=== PATIENT | female | born 2000 | race Caucasian/White ===

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

== ENCOUNTER 2021-03-20 07:48 | Emergency (ER) | payer MEDICAID, OTHER ==
[2021-03-20 08:12] LABS: Appearance CLOUDY (CLEAR); Bilirubin NEGATIVE (NEGATIVE); Blood LARGE Ery/ul (0-5); Glucose NEGATIVE (NEGATIVE); Ketones NEGATIVE (NEGATIVE); Leukocyte Esterase LARGE (NEGATIVE); Mucus SLIGHT /HPF (NEGATIVE); Nitrite NEGATIVE (NEGATIVE); Non-Squamous Epithelial Cells RARE /HPF (FEW); Protein,Urine Dip 100 (Negative); RBC >101 /HPF (0-2); Specific Gravity 1.016 (1.005-1.025); Urobilinogen NEGATIVE mg/dL (0-1); WBC >100 /HPF (0-5)
[2021-03-20 08:13] LABS: Bacteria FEW /HPF (NEGATIVE); Budding Yeast Moderate /HPF (NEGATIVE); Epithelial Cells FEW /HPF (FEW)
--- NOTE | 2021-03-20 08:16 | ERPHSYRPT ---
- History of Present Illness Time Seen by Provider: 03/20/21 08:05 Historian: patient Exam Limitations: no limitations Patient Subjective Stated Complaint: UTI symptoms Triage Nursing Assessment: Patient ambulated back to ED and transferred self to bed. Patient A+O X 3. Patient's skin pink, warm and dry. Patient complains of hematuria, dysuria,urgency and frequency since Saturday. Urine noted to be cloudy and dark yellow. Patient complains of pain when urinating. Physician History: This is a 20-year-old female who is obese and has no prior abdominal surgeries and presents with 4-day history of dysuria, frequency and right lower quadrant abdominal pain. The right lower quadrant abdominal pain has worsened. Patient has no known history of ovarian cyst. She is unsure whether or not she is . She has no nausea vomiting or diarrhea. She has no chest pain or shortness of breath. Timing/Duration: day(s) (4) Activities at Onset: none Quality: aching Abdominal Pain Onset Location: RLQ Pain Radiation: no radiation Severity of Pain-Max: moderate Severity of Pain-Current: moderate Modifying Factors: Improves With: nothing Associated Symptoms: denies symptoms Previous symptoms: no prior history Allergies/Adverse Reactions: No Known Drug Allergies Allergy (Verified 11/13/20 10:19) Hx Tetanus, Diphtheria Vaccination/Date Given: Yes Hx Influenza Vaccination/Date Given: No Hx Pneumococcal Vaccination/Date Given: No Immunizations Up to Date: Yes Travel Risk - International Travel Have you traveled outside of the country in past 3 weeks: No - Coronavirus Screening Are you exhibiting any of the following symptoms?: No Close contact with a COVID-19 positive Pt in past 14-21 Days: No - Vaccine Status Have you recieved a Covid-19 vaccination: Yes [employer]: [employer] - Vaccination Dates Date of 2cond Vaccination (if applicable): 10/27/2020 - Review of Systems Constitutional: No Symptoms Eyes: No Symptoms Ears, Nose, & Throat: No Symptoms Respiratory: No Symptoms Cardiac: No Symptoms Abdominal/Gastrointestinal: Abdominal Pain Genitourinary Symptoms: Dysuria, Frequency Musculoskeletal: No Symptoms Skin: No Symptoms Neurological: No Symptoms Psychological: No Symptoms Endocrine: No Symptoms Hematologic/Lymphatic: No Symptoms Immunological/Allergic: No Symptoms All Other Systems: Reviewed and Negative - Past Medical History Pertinent Past Medical History: Yes Neurological History: Migraines ENT History: No Pertinent History Cardiac History: No Pertinent History Respiratory History: Other Endocrine Medical History: No Pertinent History Musculoskeletal History: Other GI Medical History: No Pertinent History History: No Pertinent History Psycho-Social History: Depression Female Reproductive Disorders: No Pertinent History Other Medical History: HX OF COVID IN MARCH AND STATES STILL SOME DIFFICULTY BREATHING SOMETIMES. PATIENT REPORTS PAIN ALSO IN BETWEEN SHOULDER BLADES - Past Surgical History Past Surgical History: No Neuro Surgical History: No Pertinent History Cardiac: No Pertinent History Respiratory: No Pertinent History Gastrointestinal: No Pertinent History Genitourinary: No Pertinent History Musculoskeletal: No Pertinent History Female Surgical History: No Pertinent History - Social History Smoking Status: Never smoker Exposure to second hand smoke: Yes Drug Use: none Patient Lives Alone: Yes - Female History Hx Last Menstrual Period: End of january Hx Now: (unsure) - Nursing Vital Signs Nursing Vital Signs: Initial Vital Signs Temperature 97.1 F 03/20/21 07:56 Pulse Rate 98 H 03/20/21 07:56 Respiratory Rate 18 03/20/21 07:56 Blood Pressure 135/89 03/20/21 07:56 O2 Sat by Pulse Oximetry 97 03/20/21 07:56 Pain Scale Pain Intensity 7 - Physical Exam General Appearance: no apparent distress, alert, anxiety Eye Exam: PERRL/EOMI, eyes nml inspection Ears, Nose, Throat Exam: normal ENT inspection, moist mucous membranes Neck Exam: normal inspection, non-tender, supple, full range of motion Respiratory Exam: normal breath sounds, lungs clear, airway intact, No chest tenderness, No respiratory distress Cardiovascular Exam: regular rate/rhythm, normal heart sounds, normal peripheral pulses Gastrointestinal/Abdomen Exam: soft, normal bowel sounds, tenderness (Right lower quadrant), guarding, No rebound Pelvic Exam: not done Rectal Exam: not done Back Exam: normal inspection, normal range of motion, No CVA tenderness, No vertebral tenderness Extremity Exam: normal inspection, normal range of motion, pelvis stable Neurologic Exam: alert, oriented x 3, 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, 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, normal mood/affect, nml cerebellar function, nml station & gait, sensation nml Skin Exam: normal color, warm, dry Lymphatic Exam: No adenopathy SpO2 Interpretation: normal SpO2: 97 O2 Delivery: Room Air Ordered Tests: Active Orders 24 hr Category Date Time Status ABDOMEN AND PELVIS W/0 CONTRAS [CT] Stat Exams 03/20/21 08:04 Completed CULTURE,URINE Stat Lab 03/20/21 07:56 Received HCG,QUALITATIVE URINE Stat Lab 03/20/21 08:08 Completed UA W/RFX UR CULTURE Stat Lab 03/20/21 07:56 Completed Medication Summary Discontinued Medications Generic Name Dose Route Start Last Admin Trade Name Santi PRN Reason Stop Dose Admin Ceftriaxone Sodium 1,000 mg 03/20/21 08:45 03/20/21 08:57 Ceftriaxone Sodium 1000 Mg Inj Vial IM 03/20/21 08:46 1,000 mg STAT ONE Administration Ceftriaxone Sodium Confirm 03/20/21 08:56 Ceftriaxone Sodium 1000 Mg Inj Vial Administered 03/20/21 08:57 Dose 1,000 mg .ROUTE .STK-MED ONE Lidocaine HCl Confirm 03/20/21 08:56 Lidocaine Hcl 1% 20 Ml Mdv 20 Ml Ml Administered 03/20/21 08:57 Dose 3 ml .ROUTE .STK-MED ONE Lab/Rad Data: Laboratory Results 03/20/21 03/20/21 Range/Units 08:08 07:56 Urine Color ALPESH (YELLOW) Urine Appearance CLOUDY (CLEAR) Urine pH 5.0 (5-6) Ur Specific [place] 1.016 (1.005-1.025) Urine Protein 100 (Negative) Urine Ketones NEGATIVE (NEGATIVE) Urine Blood LARGE (0-5) Aashish/ul Urine Nitrite NEGATIVE (NEGATIVE) Urine Bilirubin NEGATIVE (NEGATIVE) Urine Urobilinogen NEGATIVE (0-1) mg/dL Ur Leukocyte Esterase LARGE (NEGATIVE) Urine WBC (Auto) >100 (0-5) /HPF Urine RBC (Auto) >101 (0-2) /HPF U Epithel Cells (Auto) FEW (FEW) /HPF Urine Bacteria (Auto) FEW (NEGATIVE) /HPF U Non-Squamous Epi Cells RARE (FEW) /HPF Urine Mucus (Auto) SLIGHT (NEGATIVE) /HPF Urine Yeast (Budding) Moderate (NEGATIVE) /HPF Urine Culture Reflexed YES (NO) Urine Glucose NEGATIVE (NEGATIVE) mg/dL Urine HCG, Qual NEGATIVE (Negative) - Progress Progress: improved Progress Note: 03/20/21 09:50 CAT scan of the abdomen pelvis without contrast shows a normal appendix. There is no evidence of nephrolithiasis or ureterolithiasis. Counseled pt/family regarding: lab results, diagnosis, need for follow-up, rad results - Departure Departure Disposition: Home Clinical Impression: UTI (urinary tract infection) Condition: Stable Critical Care Time: No Referrals: WANG MORALES, [employer]PERVISOR [Primary Care Provider] - Follow up/PCP as directed Additional Instructions: Drink plenty of fluids. Take your medication as prescribed. Follow-up with your primary care physician for further management. Prescriptions: Ciprofloxacin [Cipro 500 MG] 500 mg PO BID #14 tablet Phenazopyridine HCl 200 mg [Pyridium 200 mg] 200 mg PO TID #6 tablet
[2021-03-20] MEDS ORDERED: Rocephin 1000 MG INJ IM ONE (08:45)
[2021-03-20] MEDS ORDERED: Rocephin 1000 MG INJ ONE (08:56)
[2021-03-20] MEDS ORDERED: XYLOCAINE 1% HCL 20 ML MDV ONE (08:56)
--- NOTE | 2021-03-20 09:47 | XRAY ---
Indication: Right abdomen pain. Hematuria. Multiple contiguous axial images obtained through abdomen and pelvis without contrast using renal stone protocol. Comparison: None Lung bases are clear. Heart is not enlarged. No renal calculus or evidence for obstructive uropathy in either system. Noncontrasted stomach and bowel loops appear nonobstructed with normal appendix. Small cul-de-sac fluid presumed physiologic from rupture/leaking cyst. No free air. Tiny hepatic calcified granuloma. Remaining liver, gallbladder, pancreas, spleen, adrenal glands, kidneys, ureters, bladder, uterus, and aorta are unremarkable for noncontrast exam. Osseous structures intact. No ventral or inguinal hernias. Impression: 1. Negative renal calculus or evidence for obstructive uropathy. 2. Small physiologic cul-de-sac fluid and old granulomatous disease. 3. Remaining CT abdomen/pelvis without contrast exam is negative.
[2021-03-20 10:27] VITALS: BP 118/72; PULSE 66; O2SAT 100
== END 2021-03-20 10:27 | disposition home or self-care (01) ==
LOC: ED 07:48
DX: N39.0 Urinary tract infection, site not specified (principal); R31.9 Hematuria, unspecified; R10.31 Right lower quadrant pain; Z86.16 Personal history of COVID-19
CPT/HCPCS: 74176; 81001; 84703; 87086; 96372; 99284; J0696

== ENCOUNTER 2021-10-22 09:35 | Emergency (ER) | payer BC, OTHER ==
[2021-10-22 09:52] LABS: Absolute Neutrophil Ct (ANC) 3.82 x10^3/uL (1.4-6.9); Basophil (Absolute #) 0.07 x10^3/uL (0-0.4); Eosinophil % 2.8 % (0.00-5.0); Eosinophil (Absolute #) 0.17 x10^3/uL (0-0.5); Hematocrit 35.9 % (35-47); Hemoglobin 11.5 g/dL (12.0-16.0); Lymphocyte (Absolute #) 1.55 x10^3/uL (1.0-4.6); Lymphocytes % 25.2 % (24.0-44.0); Mean Cell Volume 85.9 fL (78-100); Mean Corpuscular Hemoglobin 27.5 pg (26-32); Mean Platelet Volume 10.1 fL (7.5-11.0); Monocyte (Absolute #) 0.51 x10^3/uL (0.0-1.3); Monocytes % 8.3 % (0.0-12.0); Neutrophil % 62.3 % (36.0-66.0); Platelet Count 332 x10^3/uL (150-450); Red Blood Count 4.18 x10^6/uL (4.1-5.4); Red Cell Distribution Width 12.9 % (11.5-14.0); White Blood Count 6.1 x10^3/uL (4.0-10.5)
[2021-10-22 10:15] LABS: ALBUMIN 4.2 g/dL (3.5-5.0); ALKALINE PHOSPHATASE 78 U/L (38-126); ANION GAP 12.8 MEQ/L (5-15); BLOOD UREA NITROGEN 8 mg/dL (7-17); CHLORIDE 107 mmol/L (98-107); Calcium 9.3 mg/dL (8.4-10.2); Carbon Dioxide 22 mmol/L (22-30); EST GLOMERULAR FILTRATION RATE > 60.0 ML/MIN; Glucose 109 mg/dL (74-106); NT PRO BNP 49.4 pg/mL (0-450); Potassium 3.9 mmol/L (3.5-5.1); SGOT/AST 24 U/L (14-36); SGPT/ALT 20 U/L (0-35); SODIUM 138 mmol/L (137-145); Total Protein 7.5 g/dL (6.3-8.2)
[2021-10-22 10:17] LABS: Appearance CLEAR (CLEAR); Bacteria RARE /HPF (NEGATIVE); Bilirubin NEGATIVE (NEGATIVE); Epithelial Cells RARE /HPF (FEW); Glucose NEGATIVE (NEGATIVE); Ketones NEGATIVE (NEGATIVE); Mucus SLIGHT /HPF (NEGATIVE); WBC 0-2 /HPF (0-5)
[2021-10-22 10:18] LABS: Dipstick done @ ? MAIN LAB; Nitrite NEGATIVE (NEGATIVE); Protein,Urine Dip NEGATIVE (Negative); RBC NEGATIVE Ery/ul (0-5); Specific Gravity >=1.030 (1.005-1.025); Urobilinogen 0.2 mg/dL (0-1)
[2021-10-22 10:19] LABS: RBC NONE SEEN /HPF (0-2); Urine Cultured Indicated? NO
[2021-10-22 10:27] LABS: Group A Strep DETECTED (NEGATIVE)
[2021-10-22 10:39] LABS: Amphetamine,Urine NEGATIVE (NEGATIVE); Barbiturate,Urine NEGATIVE (NEGATIVE); Benzodiazepine,Urine NEGATIVE (NEGATIVE); Methadone,Urine NEGATIVE (NEGATIVE); Opiate,Urine NEGATIVE (NEGATIVE); PCP,Urine NEGATIVE (NEGATIVE); THC,Urine NEGATIVE (NEGATIVE)
[2021-10-22 10:40] LABS: INFLUENZA A NEGATIVE (NEGATIVE); INFLUENZA B NEGATIVE (NEGATIVE); RESPIRATORY SYNCTIAL VIRUS NEGATIVE (Negative); SARS-CoV-2 Xpert Express NEGATIVE (NEGATIVE)
[2021-10-22 10:59] VITALS: BP 118/72; PULSE 71; O2SAT 100
[2021-10-22] MEDS ORDERED: AMOXIL 500 MG PO ONE (11:10)
[2021-10-22] MEDS ORDERED: AMOXIL 500 MG ONE (11:12)
--- NOTE | 2021-10-22 11:15 | ERPHSYRPT ---
- History of Present Illness Time Seen by Provider: 10/22/21 09:36 Historian: patient Exam Limitations: no limitations Patient Subjective Stated Complaint: C/O "strep throat" with intermittent chest pain for the past few days. States she had strep throat at the same time her boyfriend had it and she accidentally flushed his antibiotics down the toilet so she let him have the rest of her antibiotics. She is concerned that maybe her strep throat isn't resolved because of this. NO chest pain at this time. Triage Nursing Assessment: Patient ambulated back to ED without difficulties. NO SOB noted. Patient is alert and oriented. Skin tone normal. Physician History: 21 years old female presented in the ER with chief complaint of intermittent chest pain and shortness of breath especially with deep breathing for the last couple of days. She does have sore throat for the last few days and was diagnosed outpatient with strep but did not finish her course of antibiotics and now having worsening of sore throat. No fever or chills reported. Timing/Duration: day(s) (2), intermittent, gradual onset, improved Activities at Onset: none Quality: burning Location: substernal Chest Pain Radiation: no radiation Severity of Pain-Max: moderate Severity of Pain-Current: none Modifying Factors: Improves With: nothing Associated Symptoms: denies symptoms Prior Chest Pain/Cardiac Workup: no prior chest pain Nitro Today/Relief: no nitro taken today Aspirin Treatment Today: no aspirin today Allergies/Adverse Reactions: No Known Drug Allergies Allergy (Verified 10/22/21 09:36) Hx Tetanus, Diphtheria Vaccination/Date Given: Yes Hx Influenza Vaccination/Date Given: No Hx Pneumococcal Vaccination/Date Given: No Immunizations Up to Date: Yes Travel Risk - International Travel Have you traveled outside of the country in past 3 weeks: No - Coronavirus Screening Are you exhibiting any of the following symptoms?: No Close contact with a COVID-19 positive Pt in past 14-21 Days: No - Vaccine Status Have you recieved a Covid-19 vaccination: Yes Research Physician: [employer] - Vaccination Dates Date of 2cond Vaccination (if applicable): 10/27/2020 - Review of Systems Constitutional: No Symptoms Eyes: No Symptoms Ears, Nose, & Throat: Throat Pain, Throat Swelling Respiratory: Dyspnea Cardiac: Chest Pain Abdominal/Gastrointestinal: No Symptoms Genitourinary Symptoms: No Symptoms Musculoskeletal: No Symptoms Neurological: No Symptoms Psychological: No Symptoms Endocrine: No Symptoms Hematologic/Lymphatic: No Symptoms Immunological/Allergic: No Symptoms - Past Medical History Pertinent Past Medical History: Yes Neurological History: Migraines ENT History: No Pertinent History Cardiac History: No Pertinent History Respiratory History: Other Endocrine Medical History: No Pertinent History Musculoskeletal History: Other GI Medical History: No Pertinent History History: No Pertinent History Psycho-Social History: Depression Female Reproductive Disorders: Other Other Medical History: COVID IN MARCH 2021, Polycystic Ovary Disease - Past Surgical History Past Surgical History: No Neuro Surgical History: No Pertinent History Cardiac: No Pertinent History Respiratory: No Pertinent History Gastrointestinal: No Pertinent History Genitourinary: No Pertinent History Musculoskeletal: No Pertinent History Female Surgical History: No Pertinent History - Social History Smoking Status: Current every day smoker How long have you smoked: 1 year Exposure to second hand smoke: Yes Drug Use: none Patient Lives Alone: Yes - Female History Hx Last Menstrual Period: Unsure Hx Now: No - Nursing Vital Signs Nursing Vital Signs: Initial Vital Signs Temperature 97.8 F 10/22/21 09:35 Pulse Rate 85 10/22/21 09:35 Respiratory Rate 25 H 10/22/21 09:35 Blood Pressure 130/73 10/22/21 09:35 O2 Sat by Pulse Oximetry 98 10/22/21 09:35 Pain Scale Pain Intensity 0 - Physical Exam General Appearance: no apparent distress, alert Eye Exam: PERRL/EOMI Ears, Nose, Throat Exam: pharyngeal erythema, tonsillar exudate Neck Exam: normal inspection, non-tender, supple, full range of motion, lymphadenopathy Respiratory Exam: normal breath sounds, lungs clear Cardiovascular Exam: regular rate/rhythm, normal heart sounds Back Exam: normal inspection, normal range of motion Extremity Exam: normal inspection, normal range of motion Neurologic Exam: alert, oriented x 3, cooperative Skin Exam: normal color SpO2 Interpretation: normal SpO2: 100 O2 Delivery: Room Air Ordered Tests: Active Orders 24 hr Category Date Time Status EKG-ER Only STAT Care 10/22/21 09:39 Completed CHEST 1 VIEW (PORTABLE) Stat Exams 10/22/21 09:38 Completed CBC W DIFF Stat Lab 10/22/21 09:53 Completed CMP Stat Lab 10/22/21 09:53 Completed D-DIMER QUANTITATIVE Stat Lab 10/22/21 09:53 Completed HCG,QUALITATIVE URINE Stat Lab 10/22/21 09:57 Completed NT PRO BNP Stat Lab 10/22/21 09:53 Completed TROPONIN Q3H Lab 10/22/21 09:53 Completed UA W/RFX CULTURE Stat Lab 10/22/21 09:57 Completed Urine Triage Profile Stat Lab 10/22/21 10:00 Completed Medication Summary Discontinued Medications Generic Name Dose Route Start Last Admin Trade Name Santi PRN Reason Stop Dose Admin Amoxicillin 500 mg 10/22/21 11:10 10/22/21 11:12 Amoxicillin Trihydrate 500 Mg Capsule PO 10/22/21 11:11 500 mg STAT ONE Administration Amoxicillin Confirm 10/22/21 11:12 Amoxicillin Trihydrate 500 Mg Capsule Administered 10/22/21 11:13 Dose 500 mg .ROUTE .STK-MED ONE Lab/Rad Data: Laboratory Result Diagrams 10/22/21 09:53 10/22/21 09:53 Laboratory Results 10/22/21 10/22/21 10/22/21 Range/Units 10:00 10:00 09:57 WBC (4.0-10.5) x10^3/uL RBC (4.1-5.4) x10^6/uL Hgb (12.0-16.0) g/dL Hct (35-47) % MCV (78-100) fL MCH (26-32) pg MCHC (32-36) g/dL RDW (11.5-14.0) % Plt Count (150-450) x10^3/uL MPV (7.5-11.0) fL Gran % (36.0-66.0) % Immature Gran % (Auto) (0.00-0.4) % Nucleat RBC Rel Count (0.00-0.1) % Eos # (Auto) (0-0.5) x10^3/uL Immature Gran # (Auto) (0.00-0.03) x10^3u/L Absolute Lymphs (auto) (1.0-4.6) x10^3/uL Absolute Monos (auto) (0.0-1.3) x10^3/uL Absolute Nucleated RBC (0.00-0.01) x10^3u/L Lymphocytes % (24.0-44.0) % Monocytes % (0.0-12.0) % Eosinophils % (0.00-5.0) % Basophils % (0.0-0.4) % Absolute Granulocytes (1.4-6.9) x10^3/uL Basophils # (0-0.4) x10^3/uL D-Dimer (0.0-0.50) mg/L Sodium (137-145) mmol/L Potassium (3.5-5.1) mmol/L Chloride (98-107) mmol/L Carbon Dioxide (22-30) mmol/L Anion Gap (5-15) MEQ/L BUN (7-17) mg/dL Creatinine (0.52-1.04) mg/dL Estimated GFR ML/MIN Glucose (74-106) mg/dL Calcium (8.4-10.2) mg/dL Total Bilirubin (0.2-1.3) mg/dL AST (14-36) U/L ALT (0-35) U/L Alkaline Phosphatase (38-126) U/L Troponin I (0.000-0.034) ng/mL NT-Pro-B Natriuret Pep (0-450) pg/mL Serum Total Protein (6.3-8.2) g/dL Albumin (3.5-5.0) g/dL Urinalys Dipstick Clnc Urine Color (YELLOW) Urine Appearance (CLEAR) Urine pH (5-6) Ur Specific [place] (1.005-1.025) POC Urine Protein Conf (Negative) Urine Ketones (NEGATIVE) Urine Nitrite (NEGATIVE) Urine Bilirubin (NEGATIVE) Urine Urobilinogen (0-1) mg/dL Urine Leukocytes (NEGATIVE) Urine WBC (Auto) (0-5) /HPF Urine RBC (Auto) (0-2) /HPF U Epithel Cells (Auto) (FEW) /HPF Urine Bacteria (Auto) (NEGATIVE) /HPF Urine RBC (0-5) Aashish/ul Urine Mucus (Auto) (NEGATIVE) /HPF Ur Culture Indicated? Urine Glucose (NEGATIVE) mg/dL Urine HCG, Qual NEGATIVE (Negative) Urine Opiates Level NEGATIVE (NEGATIVE) Ur Methadone NEGATIVE (NEGATIVE) Urine Barbiturates NEGATIVE (NEGATIVE) Ur Phencyclidine (PCP) NEGATIVE (NEGATIVE) Urine Amphetamine NEGATIVE (NEGATIVE) U Benzodiazepine Level NEGATIVE (NEGATIVE) Urine Marijuana (THC) NEGATIVE (NEGATIVE) Influenza Type A Ag NEGATIVE (NEGATIVE) Influenza Type B Ag NEGATIVE (NEGATIVE) RSV (PCR) NEGATIVE (Negative) SARS-CoV-2 (PCR) NEGATIVE (NEGATIVE) Group A Strep Antibody DETECTED (NEGATIVE) 10/22/21 10/22/21 10/22/21 Range/Units 09:57 09:53 09:53 WBC (4.0-10.5) x10^3/uL RBC (4.1-5.4) x10^6/uL Hgb (12.0-16.0) g/dL Hct (35-47) % MCV (78-100) fL MCH (26-32) pg MCHC (32-36) g/dL RDW (11.5-14.0) % Plt Count (150-450) x10^3/uL MPV (7.5-11.0) fL Gran % (36.0-66.0) % Immature Gran % (Auto) (0.00-0.4) % Nucleat RBC Rel Count (0.00-0.1) % Eos # (Auto) (0-0.5) x10^3/uL Immature Gran # (Auto) (0.00-0.03) x10^3u/L Absolute Lymphs (auto) (1.0-4.6) x10^3/uL Absolute Monos (auto) (0.0-1.3) x10^3/uL Absolute Nucleated RBC (0.00-0.01) x10^3u/L Lymphocytes % (24.0-44.0) % Monocytes % (0.0-12.0) % Eosinophils % (0.00-5.0) % Basophils % (0.0-0.4) % Absolute Granulocytes (1.4-6.9) x10^3/uL Basophils # (0-0.4) x10^3/uL D-Dimer < 0.19 (0.0-0.50) mg/L Sodium (137-145) mmol/L Potassium (3.5-5.1) mmol/L Chloride (98-107) mmol/L Carbon Dioxide (22-30) mmol/L Anion Gap (5-15) MEQ/L BUN (7-17) mg/dL Creatinine (0.52-1.04) mg/dL Estimated GFR ML/MIN Glucose (74-106) mg/dL Calcium (8.4-10.2) mg/dL Total Bilirubin (0.2-1.3) mg/dL AST (14-36) U/L ALT (0-35) U/L Alkaline Phosphatase (38-126) U/L Troponin I < 0.012 (0.000-0.034) ng/mL NT-Pro-B Natriuret Pep (0-450) pg/mL Serum Total Protein (6.3-8.2) g/dL Albumin (3.5-5.0) g/dL Urinalys Dipstick Clnc MAIN LAB Urine Color YELLOW (YELLOW) Urine Appearance CLEAR (CLEAR) Urine pH 6.0 (5-6) Ur Specific [place] >=1.030 (1.005-1.025) POC Urine Protein Conf NEGATIVE (Negative) Urine Ketones NEGATIVE (NEGATIVE) Urine Nitrite NEGATIVE (NEGATIVE) Urine Bilirubin NEGATIVE (NEGATIVE) Urine Urobilinogen 0.2 (0-1) mg/dL Urine Leukocytes NEGATIVE (NEGATIVE) Urine WBC (Auto) 0-2 (0-5) /HPF Urine RBC (Auto) NONE SEEN (0-2) /HPF U Epithel Cells (Auto) RARE (FEW) /HPF Urine Bacteria (Auto) RARE (NEGATIVE) /HPF Urine RBC NEGATIVE (0-5) Aashish/ul Urine Mucus (Auto) SLIGHT (NEGATIVE) /HPF Ur Culture Indicated? NO Urine Glucose NEGATIVE (NEGATIVE) mg/dL Urine HCG, Qual (Negative) Urine Opiates Level (NEGATIVE) Ur Methadone (NEGATIVE) Urine Barbiturates (NEGATIVE) Ur Phencyclidine (PCP) (NEGATIVE) Urine Amphetamine (NEGATIVE) U Benzodiazepine Level (NEGATIVE) Urine Marijuana (THC) (NEGATIVE) Influenza Type A Ag (NEGATIVE) Influenza Type B Ag (NEGATIVE) RSV (PCR) (Negative) SARS-CoV-2 (PCR) (NEGATIVE) Group A Strep Antibody (NEGATIVE) 10/22/21 10/22/21 Range/Units 09:53 09:53 WBC 6.1 (4.0-10.5) x10^3/uL RBC 4.18 (4.1-5.4) x10^6/uL Hgb 11.5 L (12.0-16.0) g/dL Hct 35.9 (35-47) % MCV 85.9 (78-100) fL MCH 27.5 (26-32) pg MCHC 32.0 (32-36) g/dL RDW 12.9 (11.5-14.0) % Plt Count 332 (150-450) x10^3/uL MPV 10.1 (7.5-11.0) fL Gran % 62.3 (36.0-66.0) % Immature Gran % (Auto) 0.3 (0.00-0.4) % Nucleat RBC Rel Count 0.0 (0.00-0.1) % Eos # (Auto) 0.17 (0-0.5) x10^3/uL Immature Gran # (Auto) 0.02 (0.00-0.03) x10^3u/L Absolute Lymphs (auto) 1.55 (1.0-4.6) x10^3/uL Absolute Monos (auto) 0.51 (0.0-1.3) x10^3/uL Absolute Nucleated RBC 0.00 (0.00-0.01) x10^3u/L Lymphocytes % 25.2 (24.0-44.0) % Monocytes % 8.3 (0.0-12.0) % Eosinophils % 2.8 (0.00-5.0) % Basophils % 1.1 (0.0-0.4) % Absolute Granulocytes 3.82 (1.4-6.9) x10^3/uL Basophils # 0.07 (0-0.4) x10^3/uL D-Dimer (0.0-0.50) mg/L Sodium 138 (137-145) mmol/L Potassium 3.9 (3.5-5.1) mmol/L Chloride 107 (98-107) mmol/L Carbon Dioxide 22 (22-30) mmol/L Anion Gap 12.8 (5-15) MEQ/L BUN 8 (7-17) mg/dL Creatinine 0.70 (0.52-1.04) mg/dL Estimated GFR > 60.0 ML/MIN Glucose 109 H (74-106) mg/dL Calcium 9.3 (8.4-10.2) mg/dL Total Bilirubin 0.60 (0.2-1.3) mg/dL AST 24 (14-36) U/L ALT 20 (0-35) U/L Alkaline Phosphatase 78 (38-126) U/L Troponin I (0.000-0.034) ng/mL NT-Pro-B Natriuret Pep 49.4 (0-450) pg/mL Serum Total Protein 7.5 (6.3-8.2) g/dL Albumin 4.2 (3.5-5.0) g/dL Urinalys Dipstick Clnc Urine Color (YELLOW) Urine Appearance (CLEAR) Urine pH (5-6) Ur Specific [place] (1.005-1.025) POC Urine Protein Conf (Negative) Urine Ketones (NEGATIVE) Urine Nitrite (NEGATIVE) Urine Bilirubin (NEGATIVE) Urine Urobilinogen (0-1) mg/dL Urine Leukocytes (NEGATIVE) Urine WBC (Auto) (0-5) /HPF Urine RBC (Auto) (0-2) /HPF U Epithel Cells (Auto) (FEW) /HPF Urine Bacteria (Auto) (NEGATIVE) /HPF Urine RBC (0-5) Aashish/ul Urine Mucus (Auto) (NEGATIVE) /HPF Ur Culture Indicated? Urine Glucose (NEGATIVE) mg/dL Urine HCG, Qual (Negative) Urine Opiates Level (NEGATIVE) Ur Methadone (NEGATIVE) Urine Barbiturates (NEGATIVE) Ur Phencyclidine (PCP) (NEGATIVE) Urine Amphetamine (NEGATIVE) U Benzodiazepine Level (NEGATIVE) Urine Marijuana (THC) (NEGATIVE) Influenza Type A Ag (NEGATIVE) Influenza Type B Ag (NEGATIVE) RSV (PCR) (Negative) SARS-CoV-2 (PCR) (NEGATIVE) Group A Strep Antibody (NEGATIVE) - Progress Progress: re-examined Air Movement: good Progress Note: 10/22/21 11:11 21-year-old is evaluated for chest pain with shortness of breath and sore throat. No acute cardiopulmonary findings on chest x-ray reviewed by me, official report is pending. EKG normal sinus rhythm. Negative troponin and D- dimers. Has positive rapid strep test and started on amoxicillin. We will continue with antibiotics along with supportive care. Outpatient follow-up recommended. Discussed signs symptoms of worsening needing return to ER which she seems understanding. Blood Culture(s) Obtained: No Antibiotics given: Yes Counseled pt/family regarding: lab results, diagnosis, need for follow-up, rad results - Departure Departure Disposition: Home Clinical Impression: Strep pharyngitis, Atypical chest pain Condition: Stable Critical Care Time: No Referrals: WANG MORALES, ISABELLA [Primary Care Provider] - Follow Up with PCP/3 days Instructions: Chest Pain (DC), Strep Throat (DC) Additional Instructions: tylenol /ibuprofen as needed for pain /fever, follow up with PCP for re evaluation in 2-3 days. return to ER for worsening of symptoms. Prescriptions: Amoxicillin 500 mg PO BID 10 Days #20 tablet
--- NOTE | 2021-10-22 19:49 | XRAY ---
Indication: Chest pain and short of breath. Comparison: None Portable chest demonstrates normal heart, lungs, and bony thorax.
== END 2021-10-22 11:24 | disposition home or self-care (01) ==
LOC: ED 09:35
DX: J02.0 Streptococcal pharyngitis (principal); B95.0 Streptococcus, group A, as the cause of diseases classified elsewhere; R07.89 Other chest pain; R06.02 Shortness of breath; Z72.0 Tobacco use; Z86.16 Personal history of COVID-19
CPT/HCPCS: 0241U; 36415; 71045; 80053; 80307; 81015; 81025; 83880; 84484; 85025; 85379; 87651; 93005; 99283; A9270-GY

== ENCOUNTER 2021-11-03 08:55 | Emergency (ER) | payer BC, MEDICAID ==
--- NOTE | 2021-11-03 09:01 | ERPHSYRPT ---
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 Patient also has a history of suicidal attempts with both cutting and overdose of medication. Patient states that she has been feeling suicidal but not homicidal for the last month intermittently. She recently broke up with her boyfriend. In addition, her father took her dog to the dog pound because he felt the additional responsibility in care of dog was causing her more anxiety than helping. Patient states that she does not specifically have a plan this time but recently wrote a note out for the paramedics what drugs she overdosed with in order to help them know what she took. However, she did not follow through. She is not hallucinating. Again, patient denies any ingestion of any type of medication or drugs. She has no headache. She has no chest pain. She has no shortness of breath. She has no abdominal pain. Timing/Duration: today Severity of Symptoms-Max: moderate Severity of Symptoms-Current: mild (To moderate) Context related to: significant other, living circumstances Suicidal thoughts: other (Has actually attempted in the past) Associated Symptoms: depressed Previous symptoms: same symptoms as today, recently seen (For a different issue) Allergies/Adverse Reactions: No Known Drug Allergies Allergy (Verified 11/03/21 09:08) Hx Tetanus, Diphtheria Vaccination/Date Given: Yes Hx Influenza Vaccination/Date Given: No Hx Pneumococcal Vaccination/Date Given: No Travel Risk - International Travel Have you traveled outside of the country in past 3 weeks: No - Coronavirus Screening Are you exhibiting any of the following symptoms?: No Close contact with a COVID-19 positive Pt in past 14-21 Days: No - Vaccine Status Have you recieved a Covid-19 vaccination: Yes 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[employer] - Vaccination Dates Date of 2cond Vaccination (if applicable): 10/27/2020 - Past Medical History Pertinent Past Medical History: Yes Neurological History: Migraines ENT History: No Pertinent History Cardiac History: No Pertinent History Respiratory History: Other Endocrine Medical History: No Pertinent History Musculoskeletal History: Other GI Medical History: No Pertinent History History: No Pertinent History Psycho-Social History: Depression Female Reproductive Disorders: Other Other Medical History: COVID IN MARCH 2021, Polycystic Ovary Disease - Past Surgical History Past Surgical History: No Neuro Surgical History: No Pertinent History Cardiac: No Pertinent History Respiratory: No Pertinent History Gastrointestinal: No Pertinent History Genitourinary: No Pertinent History Musculoskeletal: No Pertinent History Female Surgical History: No Pertinent History - Social History Smoking Status: Current every day smoker How long have you smoked: 1 year Exposure to second hand smoke: Yes Drug Use: none Patient Lives Alone: Yes - Review of Systems Constitutional: No Symptoms Eyes: No Symptoms Ears, Nose, & Throat: No Symptoms Respiratory: No Symptoms Cardiac: No Symptoms Abdominal/Gastrointestinal: No Symptoms Genitourinary Symptoms: No Symptoms Musculoskeletal: No Symptoms Skin: No Symptoms Neurological: No Symptoms Psychological: Depression, Suicidal Ideations, No Homicidal Ideations, No Hallucinations Endocrine: No Symptoms Hematologic/Lymphatic: No Symptoms Immunological/Allergic: No Symptoms All Other Systems: Reviewed and Negative - Nursing Vital Signs Nursing Vital Signs: Initial Vital Signs Temperature 97.8 F 11/03/21 09:11 Pulse Rate 71 11/03/21 09:11 Respiratory Rate 15 11/03/21 09:11 Blood Pressure 116/61 11/03/21 09:11 O2 Sat by Pulse Oximetry 100 11/03/21 09:11 Pain Scale Pain Intensity 0 - Physical Exam General Appearance: no apparent distress, alert, anxiety, obese Eyes, Ears, Nose, Throat Exam: normal ENT inspection, moist mucous membranes Neck Exam: normal inspection, non-tender, supple, full range of motion Respiratory Exam: normal breath sounds, lungs clear, airway intact, No chest tenderness, No respiratory distress Cardiovascular Exam: regular rate/rhythm, normal heart sounds, normal peripheral pulses Gastrointestinal/Abdominal Exam: soft, normal bowel sounds, No tenderness Current Suicidality: denies suicide plan Neurological Exam: alert, normal mood/affect, 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, 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, oriented x 3, anxious, depressed affect Appearance: appropriate appearance, appropriate insight, neat Behavior/Eye Contact/Speech: alert & cooperative, cooperative, good eye contact, normal speech Thoughts/Hallucinations: normal thought pattern, no apparent hallucination Skin Exam: normal color, warm, dry SpO2 Interpretation: normal O2 Delivery: Room Air - Course Nursing assessment & vital signs reviewed: Yes EKG Interpreted by Me: RATE (70), Sinus Rhythm, NORMAL AXIS, NORMAL INTERVALS, NORMAL QRS, NORMAL ST-T, Other (No acute ischemic changes on today's EKG) Ordered Tests: Active Orders 24 hr Category Date Time Status EKG-ER Only STAT Care 11/03/21 09:34 Active ACETAMINOPHEN Stat Lab 11/03/21 10:02 Completed CBC W DIFF Stat Lab 11/03/21 09:34 Completed CMP Stat Lab 11/03/21 10:02 Completed ETHYL ALCOHOL Stat Lab 11/03/21 10:02 Completed HCG,QUALITATIVE URINE Stat Lab 11/03/21 09:35 Completed SALICYLATE Stat Lab 11/03/21 10:02 Completed UA W/RFX CULTURE Stat Lab 11/03/21 09:36 Completed Urine Triage Profile Stat Lab 11/03/21 09:35 Completed Lab/Rad Data: Laboratory Result Diagrams 11/03/21 09:34 11/03/21 10:02 Laboratory Results 11/03/21 11/03/21 11/03/21 Range/Units 10:02 09:40 09:36 WBC (4.0-10.5) x10^3/uL RBC (4.1-5.4) x10^6/uL Hgb (12.0-16.0) g/dL Hct (35-47) % MCV (78-100) fL MCH (26-32) pg MCHC (32-36) g/dL RDW (11.5-14.0) % Plt Count (150-450) x10^3/uL MPV (7.5-11.0) fL Gran % (36.0-66.0) % Immature Gran % (Auto) (0.00-0.4) % Nucleat RBC Rel Count (0.00-0.1) % Eos # (Auto) (0-0.5) x10^3/uL Immature Gran # (Auto) (0.00-0.03) x10^3u/L Absolute Lymphs (auto) (1.0-4.6) x10^3/uL Absolute Monos (auto) (0.0-1.3) x10^3/uL Absolute Nucleated RBC (0.00-0.01) x10^3u/L Lymphocytes % (24.0-44.0) % Monocytes % (0.0-12.0) % Eosinophils % (0.00-5.0) % Basophils % (0.0-0.4) % Absolute Granulocytes (1.4-6.9) x10^3/uL Basophils # (0-0.4) x10^3/uL Sodium 137 (137-145) mmol/L Potassium 5.0 (3.5-5.1) mmol/L Chloride 106 (98-107) mmol/L Carbon Dioxide 23 (22-30) mmol/L Anion Gap 13.2 (5-15) MEQ/L BUN 9 (7-17) mg/dL Creatinine 0.66 (0.52-1.04) mg/dL Estimated GFR > 60.0 ML/MIN Glucose 97 (74-106) mg/dL Calcium 9.0 (8.4-10.2) mg/dL Total Bilirubin 0.90 (0.2-1.3) mg/dL AST 28 (14-36) U/L ALT 16 (0-35) U/L Alkaline Phosphatase 68 (38-126) U/L Serum Total Protein 8.0 (6.3-8.2) g/dL Albumin 4.3 (3.5-5.0) g/dL Urinalys Dipstick Clnc MAIN LAB Urine Color YELLOW (YELLOW) Urine Appearance CLEAR (CLEAR) Urine pH 6.0 (5-6) Ur Specific [place] >=1.030 (1.005-1.025) POC Urine Protein Conf NEGATIVE (Negative) Urine Ketones NEGATIVE (NEGATIVE) Urine Nitrite NEGATIVE (NEGATIVE) Urine Bilirubin NEGATIVE (NEGATIVE) Urine Urobilinogen 0.2 (0-1) mg/dL Urine Leukocytes NEGATIVE (NEGATIVE) Urine WBC (Auto) 3-5 (0-5) /HPF Urine RBC (Auto) NONE (0-2) /HPF U Epithel Cells (Auto) RARE (FEW) /HPF Urine Bacteria (Auto) NONE (NEGATIVE) /HPF Urine RBC NEGATIVE (0-5) Aashish/ul Urine Mucus (Auto) SLIGHT (NEGATIVE) /HPF Ur Culture Indicated? NO Urine Glucose NEGATIVE (NEGATIVE) mg/dL Urine HCG, Qual (Negative) Salicylates < 1.0 L (2-20) mg/dL Urine Opiates Level (NEGATIVE) Ur Methadone (NEGATIVE) Acetaminophen < 10 L (10-30) ug/ml Urine Barbiturates (NEGATIVE) Ur Phencyclidine (PCP) (NEGATIVE) Urine Amphetamine (NEGATIVE) U Benzodiazepine Level (NEGATIVE) Urine Marijuana (THC) (NEGATIVE) Ethyl Alcohol < 10 (0-10) mg/dL Influenza Type A Ag NEGATIVE (NEGATIVE) Influenza Type B Ag NEGATIVE (NEGATIVE) RSV (PCR) NEGATIVE (Negative) SARS-CoV-2 (PCR) NEGATIVE (NEGATIVE) 11/03/21 11/03/21 11/03/21 Range/Units 09:35 09:35 09:34 WBC 8.5 (4.0-10.5) x10^3/uL RBC 4.19 (4.1-5.4) x10^6/uL Hgb 11.4 L (12.0-16.0) g/dL Hct 37.1 (35-47) % MCV 88.5 (78-100) fL MCH 27.2 (26-32) pg MCHC 30.7 L (32-36) g/dL RDW 13.3 (11.5-14.0) % Plt Count 266 (150-450) x10^3/uL MPV 10.7 (7.5-11.0) fL Gran % 72.3 H (36.0-66.0) % Immature Gran % (Auto) 0.4 (0.00-0.4) % Nucleat RBC Rel Count 0.0 (0.00-0.1) % Eos # (Auto) 0.14 (0-0.5) x10^3/uL Immature Gran # (Auto) 0.03 (0.00-0.03) x10^3u/L Absolute Lymphs (auto) 1.65 (1.0-4.6) x10^3/uL Absolute Monos (auto) 0.45 (0.0-1.3) x10^3/uL Absolute Nucleated RBC 0.00 (0.00-0.01) x10^3u/L Lymphocytes % 19.5 L (24.0-44.0) % Monocytes % 5.3 (0.0-12.0) % Eosinophils % 1.7 (0.00-5.0) % Basophils % 0.8 (0.0-0.4) % Absolute Granulocytes 6.12 (1.4-6.9) x10^3/uL Basophils # 0.07 (0-0.4) x10^3/uL Sodium (137-145) mmol/L Potassium (3.5-5.1) mmol/L Chloride (98-107) mmol/L Carbon Dioxide (22-30) mmol/L Anion Gap (5-15) MEQ/L BUN (7-17) mg/dL Creatinine (0.52-1.04) mg/dL Estimated GFR ML/MIN Glucose (74-106) mg/dL Calcium (8.4-10.2) mg/dL Total Bilirubin (0.2-1.3) mg/dL AST (14-36) U/L ALT (0-35) U/L Alkaline Phosphatase (38-126) U/L Serum Total Protein (6.3-8.2) g/dL Albumin (3.5-5.0) g/dL Urinalys Dipstick Clnc Urine Color (YELLOW) Urine Appearance (CLEAR) Urine pH (5-6) Ur Specific [place] (1.005-1.025) POC Urine Protein Conf (Negative) Urine Ketones (NEGATIVE) Urine Nitrite (NEGATIVE) Urine Bilirubin (NEGATIVE) Urine Urobilinogen (0-1) mg/dL Urine Leukocytes (NEGATIVE) Urine WBC (Auto) (0-5) /HPF Urine RBC (Auto) (0-2) /HPF U Epithel Cells (Auto) (FEW) /HPF Urine Bacteria (Auto) (NEGATIVE) /HPF Urine RBC (0-5) Aashish/ul Urine Mucus (Auto) (NEGATIVE) /HPF Ur Culture Indicated? Urine Glucose (NEGATIVE) mg/dL Urine HCG, Qual NEGATIVE (Negative) Salicylates (2-20) mg/dL Urine Opiates Level NEGATIVE (NEGATIVE) Ur Methadone NEGATIVE (NEGATIVE) Acetaminophen (10-30) ug/ml Urine Barbiturates NEGATIVE (NEGATIVE) Ur Phencyclidine (PCP) NEGATIVE (NEGATIVE) Urine Amphetamine NEGATIVE (NEGATIVE) U Benzodiazepine Level NEGATIVE (NEGATIVE) Urine Marijuana (THC) POSITIVE (NEGATIVE) Ethyl Alcohol (0-10) mg/dL Influenza Type A Ag (NEGATIVE) Influenza Type B Ag (NEGATIVE) RSV (PCR) (Negative) SARS-CoV-2 (PCR) (NEGATIVE) - Progress Progress: unchanged Progress Note: 11/03/21 15:00 Patient has been accepted at [facility] for further evaluation management of suicidal ideation. Counseled pt/family regarding: lab results, diagnosis - Departure Departure Disposition: Transfer Clinical Impression: Suicidal ideation Condition: Stable Critical Care Time: No Referrals: WANG MORALES NP [Primary Care Provider] - Follow up/PCP as directed
[2021-11-03 09:43] LABS: Appearance CLEAR (CLEAR); Bilirubin NEGATIVE (NEGATIVE); Dipstick done @ ? MAIN LAB; Glucose NEGATIVE (NEGATIVE); Ketones NEGATIVE (NEGATIVE); Nitrite NEGATIVE (NEGATIVE); Protein,Urine Dip NEGATIVE (Negative); RBC NEGATIVE Ery/ul (0-5); Specific Gravity >=1.030 (1.005-1.025); Urobilinogen 0.2 mg/dL (0-1)
[2021-11-03 09:44] LABS: Epithelial Cells RARE /HPF (FEW); Mucus SLIGHT /HPF (NEGATIVE)
[2021-11-03 09:45] LABS: Urine Cultured Indicated? NO
[2021-11-03 09:58] LABS: Amphetamine,Urine NEGATIVE (NEGATIVE); Barbiturate,Urine NEGATIVE (NEGATIVE); Benzodiazepine,Urine NEGATIVE (NEGATIVE); Methadone,Urine NEGATIVE (NEGATIVE); Opiate,Urine NEGATIVE (NEGATIVE); PCP,Urine NEGATIVE (NEGATIVE); THC,Urine POSITIVE (NEGATIVE)
[2021-11-03 10:00] LABS: Absolute Neutrophil Ct (ANC) 6.12 x10^3/uL (1.4-6.9); Basophil (Absolute #) 0.07 x10^3/uL (0-0.4); Eosinophil % 1.7 % (0.00-5.0); Eosinophil (Absolute #) 0.14 x10^3/uL (0-0.5); Hematocrit 37.1 % (35-47); Hemoglobin 11.4 g/dL (12.0-16.0); Lymphocyte (Absolute #) 1.65 x10^3/uL (1.0-4.6); Lymphocytes % 19.5 % (24.0-44.0); Mean Cell Volume 88.5 fL (78-100); Mean Corpuscular Hemoglobin 27.2 pg (26-32); Mean Corpuscular Hgb Concent. 30.7 g/dL (32-36); Mean Platelet Volume 10.7 fL (7.5-11.0); Monocyte (Absolute #) 0.45 x10^3/uL (0.0-1.3); Monocytes % 5.3 % (0.0-12.0); Neutrophil % 72.3 % (36.0-66.0); Platelet Count 266 x10^3/uL (150-450); Red Blood Count 4.19 x10^6/uL (4.1-5.4); Red Cell Distribution Width 13.3 % (11.5-14.0); White Blood Count 8.5 x10^3/uL (4.0-10.5)
[2021-11-03 10:11] LABS: ACETAMINOPHEN < 10 ug/ml (10-30); ALBUMIN 4.3 g/dL (3.5-5.0); ALKALINE PHOSPHATASE 68 U/L (38-126); ANION GAP 13.2 MEQ/L (5-15); BLOOD UREA NITROGEN 9 mg/dL (7-17); CHLORIDE 106 mmol/L (98-107); Carbon Dioxide 23 mmol/L (22-30); Creatinine 1 0.66 mg/dL (0.52-1.04); EST GLOMERULAR FILTRATION RATE > 60.0 ML/MIN; ETHYL ALCOHOL < 10 mg/dL (0-10); Glucose 97 mg/dL (74-106); SALICYLATE < 1.0 mg/dL (2-20); SGOT/AST 28 U/L (14-36); SGPT/ALT 16 U/L (0-35); SODIUM 137 mmol/L (137-145)
[2021-11-03 10:28] LABS: INFLUENZA A NEGATIVE (NEGATIVE); INFLUENZA B NEGATIVE (NEGATIVE); RESPIRATORY SYNCTIAL VIRUS NEGATIVE (Negative); SARS-CoV-2 Xpert Express NEGATIVE (NEGATIVE)
[2021-11-03 18:04] VITALS: PULSE 80; O2SAT 100
[2021-11-03 19:18] VITALS: BP 118/96
== END 2021-11-03 19:36 ==
LOC: ED 08:55
DX: R45.851 Suicidal ideations (principal); Z91.51 Personal history of suicidal behavior; Z63.0 Problems in relationship with spouse or partner; Z72.0 Tobacco use; Z86.16 Personal history of COVID-19
CPT/HCPCS: 0241U; 36415; 80053; 80307; 81015; 81025; 85025; 93005; 99285; G0480

== ENCOUNTER 2022-03-09 22:30 | Emergency (ER) | payer MEDICAID ==
[2022-03-09 22:46] VITALS: O2SAT 100
[2022-03-09] MEDS ORDERED: solu-MEDROL 125 MG, Sterile H2O 10 ml 2 ML IM ONE ×2 (22:59)
[2022-03-09] MEDS ORDERED: Rocephin 1000 MG INJ IM ONE (22:59)
[2022-03-09] MEDS ORDERED: NORCO 5/325 MG PO ONE (23:00)
[2022-03-09] MEDS ORDERED: Sterile H2O 10 ml IJ ONE (23:04)
[2022-03-09] MEDS ORDERED: NORCO 5/325 MG ONE (23:04)
[2022-03-09] MEDS ORDERED: solu-MEDROL ONE (23:05)
[2022-03-09] MEDS ORDERED: Rocephin 1000 MG INJ ONE ×2 (23:05→23:06)
--- NOTE | 2022-03-09 23:07 | ERPHSYRPT ---
- History of Present Illness Time Seen by Provider: 03/09/22 22:50 Source: patient Exam Limitations: no limitations Patient Subjective Stated Complaint: pt states she is having r ear pain and went to [facility] care saturday, states that she was tested for covid, flu and rsv and strep all were negative, went back to [facility] care today and was given flonase Triage Nursing Assessment: pt is alert and oriented, states she has pain in ear she rates 9/10 Physician History: This is a 21-year-old white female who [facility] because of sore throat, left earache and a cough. They performed a work-up which included viral swabs and a swab for determining strep pharyngitis. The results were negative per patient report. Within a day the left earache was subsiding but then the right ear became very tender and has persisted despite Tylenol medication. She has not had fever. She has no vomiting or diarrhea symptoms. She has no chest pain. She has no shortness of breath. She has had no abdominal pain. Patient drove herself to the emergency department Severity: moderate ENT Location: ear (R) Prearrival Treatment: over the counter meds Associated Symptoms: ear pain (R), cough, sore throat Allergies/Adverse Reactions: No Known Drug Allergies Allergy (Verified 11/03/21 09:08) Hx Tetanus, Diphtheria Vaccination/Date Given: Yes Hx Influenza Vaccination/Date Given: No Hx Pneumococcal Vaccination/Date Given: No Travel Risk - International Travel Have you traveled outside of the country in past 3 weeks: No - Coronavirus Screening Are you exhibiting any of the following symptoms?: No - Vaccine Status Have you recieved a Covid-19 vaccination: Yes 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[employer] - Vaccination Dates Date of 2cond Vaccination (if applicable): unknown - Review of Systems Constitutional: No Symptoms Eyes: No Symptoms Ears, Nose, & Throat: Ear Pain (Right ear pain), Throat Pain (Mild) Respiratory: Cough (Mild) Cardiac: No Symptoms Abdominal/Gastrointestinal: No Symptoms Genitourinary Symptoms: No Symptoms Musculoskeletal: No Symptoms Skin: No Symptoms Neurological: No Symptoms Psychological: No Symptoms Endocrine: No Symptoms Hematologic/Lymphatic: No Symptoms Immunological/Allergic: No Symptoms All Other Systems: Reviewed and Negative - Past Medical History Pertinent Past Medical History: Yes Neurological History: Migraines ENT History: No Pertinent History Cardiac History: No Pertinent History Respiratory History: Other Endocrine Medical History: No Pertinent History Musculoskeletal History: Other GI Medical History: No Pertinent History History: No Pertinent History Psycho-Social History: Depression Female Reproductive Disorders: Other Other Medical History: COVID IN MARCH 2021, Polycystic Ovary Disease - Past Surgical History Past Surgical History: No Neuro Surgical History: No Pertinent History Cardiac: No Pertinent History Respiratory: No Pertinent History Gastrointestinal: No Pertinent History Genitourinary: No Pertinent History Musculoskeletal: No Pertinent History Female Surgical History: No Pertinent History - Social History Smoking Status: Current every day smoker How long have you smoked: 1 year Exposure to second hand smoke: Yes Drug Use: none Patient Lives Alone: Yes - Female History Hx Last Menstrual Period: 01/23/22 Hx Now: No (unknown) - Nursing Vital Signs Nursing Vital Signs: Initial Vital Signs Temperature 98.0 F 03/09/22 22:33 Pulse Rate 107 H 03/09/22 22:33 Respiratory Rate 18 03/09/22 22:33 Blood Pressure 155/95 03/09/22 22:33 O2 Sat by Pulse Oximetry 100 03/09/22 22:33 Pain Scale Pain Intensity 9 - Physical Exam General Appearance: no apparent distress, alert, anxiety Eye Exam: bilateral eye: normal inspection, PERRL, EOMI Ear Exam: right ear: tenderness, TM bulging (Appears mildly bulging compared to the left side), left ear: canal normal (Right slightly red), TM normal, darren ateral ear: auricle normal Nasal Exam: normal inspection Throat Exam: normal, pharynx normal, No dental tenderness Neck Exam: normal inspection, non-tender, supple, full range of motion Cardiovascular/Respiratory Exam: chest non-tender, normal breath sounds, regular rate/rhythm, heart sounds normal, no respiratory distress Abdominal Exam: non-tender Neurologic Exam: alert, oriented x 3, 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, 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, normal mood/affect, nml cerebellar function, nml station & gait Skin Exam: normal color, warm, dry SpO2 Interpretation: normal SpO2: 100 O2 Delivery: Room Air - Course Nursing assessment & vital signs reviewed: Yes Ordered Tests: Medication Summary Discontinued Medications Generic Name Dose Route Start Last Admin Trade Name Freq PRN Reason Stop Dose Admin Ceftriaxone Sodium 1,000 mg 03/09/22 22:59 Ceftriaxone Sodium 1000 Mg Inj Vial IM 03/09/22 23:00 STAT ONE Methylprednisolone Sodium 0 mg 03/09/22 22:59 Succinate 125 mg/ Sterile IM 03/09/22 23:00 Water 2 ml STAT ONE - Progress Progress: unchanged Counseled pt/family regarding: diagnosis, need for follow-up - Departure Departure Disposition: Home Clinical Impression: Right otitis media Condition: Stable Critical Care Time: No Referrals: WANG MORALES, [employer] [Primary Care Provider] - Follow up/PCP as directed Additional Instructions: Drink plenty of fluids. Take your medication as prescribed. After you complete your [place] pain pills provided, begin using Tylenol. Continue the steroids. Once you have completed the steroids, begin ibuprofen 600 mg orally with food 3 times a day. Follow-up with your outpatient prescribing provider for further evaluation management. Prescriptions: Amoxicillin 500 mg Cap [Amoxil 500 mg] 500 mg PO TID #30 cap Prednisone 10 mg [Deltasone 10 mg] 10 mg PO TID #12 tablet
[2022-03-09 23:23] VITALS: BP 141/102; PULSE 85
== END 2022-03-09 23:24 | disposition home or self-care (01) ==
LOC: ED 22:30
DX: H66.91 Otitis media, unspecified, right ear (principal); H92.01 Otalgia, right ear; Z79.52 Long term (current) use of systemic steroids; Z86.16 Personal history of COVID-19; Z72.0 Tobacco use
CPT/HCPCS: 96372; 99283; J0696; J2930; A9270-GY

== ENCOUNTER 2022-08-25 10:45 | Emergency (ER) | payer MEDICAID ==
--- NOTE | 2022-08-25 10:53 | ERPHSYRPT ---
- History of Present Illness Time Seen by Provider: 08/25/22 10:53 Source: patient Exam Limitations: no limitations Physician History: 22yo at 29W No issues w/ to date Patient reports abrupt, brief, total LOC & postural tone with spontaneous recovery. Patient fell into 's arms, did not hit head Denies any postictal symptoms. Denies prior episodes. Situation: Pt was standing up from a seated position at time of event. Provocative factors: changing position. Associated symptoms: + hot, dizzy, Denies CP, dyspnea, palpitations. Pt able to recall events leading up to and after Event was witnessed. Denies any recent changes in medications. Denies family history of cardiac ds or sudden cardiac . No dysuria reported Witnessed: by family, bystander Prior Episodes: no prior history Timing/Duration: today Precipitating Factors: blurred vision, diaphoresis, lightheadedness Context: standing Loss of Consciousness: brief (seconds) [place]er of event(s): became unresponsive Allergies/Adverse Reactions: No Known Drug Allergies Allergy (Verified 08/25/22 10:52) Home Medications: Ferrous Sulfate 325 mg [Feosol 325 mg] 325 mg PO DAILY 08/25/22 [History] No122/Iron/Folic Acid [ Multi Tablet] 1 tab PO DAILY 08/25/22 [History] Hx Tetanus, Diphtheria Vaccination/Date Given: Yes Hx Influenza Vaccination/Date Given: No Hx Pneumococcal Vaccination/Date Given: No Travel Risk - Vaccine Status Have you recieved a Covid-19 vaccination: Yes Band Lining Bander: Needl - Vaccination Dates Date of 2cond Vaccination (if applicable): unknown - Past Medical History Pertinent Past Medical History: Yes Neurological History: Migraines ENT History: No Pertinent History Cardiac History: No Pertinent History Respiratory History: Other Endocrine Medical History: No Pertinent History Musculoskeletal History: Other GI Medical History: No Pertinent History History: No Pertinent History Psycho-Social History: Depression Female Reproductive Disorders: Other Other Medical History: COVID IN MARCH 2021, Polycystic Ovary Disease - Past Surgical History Past Surgical History: No Neuro Surgical History: No Pertinent History Cardiac: No Pertinent History Respiratory: No Pertinent History Gastrointestinal: No Pertinent History Genitourinary: No Pertinent History Musculoskeletal: No Pertinent History Female Surgical History: No Pertinent History - Social History Smoking Status: Current every day smoker How long have you smoked: 1 year Exposure to second hand smoke: Yes Drug Use: none Patient Lives Alone: Yes - Review of Systems Constitutional: No Symptoms Eyes: No Symptoms Ears, Nose, & Throat: No Symptoms Respiratory: No Symptoms Cardiac: No Symptoms Abdominal/Gastrointestinal: No Symptoms Genitourinary Symptoms: No Symptoms Musculoskeletal: No Symptoms Skin: No Symptoms Neurological: Dizziness, Other (overheated) Physical Exam - Nursing Vital Signs Nursing Vital Signs: Initial Vital Signs Pulse Rate 95 H 08/25/22 10:45 Respiratory Rate 18 08/25/22 10:45 Blood Pressure 114/81 08/25/22 10:45 O2 Sat by Pulse Oximetry 96 08/25/22 10:45 Pain Scale Pain Intensity 0 - [place] Coma Scale Best Eye Response (Tristan): (4) open spontaneously Best Verbal Response ([place]): (5) oriented Best Motor Response (Tristan): (6) obeys commands [place] Total: 15 - Physical Exam General Appearance: no apparent distress Eye Exam: bilateral eye: normal inspection, PERRL, EOMI Ears, Nose, Throat Exam: normal ENT inspection Neck Exam: normal inspection, supple, full range of motion Respiratory: normal breath sounds, lungs clear, airway intact, No respiratory distress Cardiovascular: regular rate/rhythm, normal heart sounds, capillary refill <2 sec, No edema Gastrointestinal: other (gravid), No tenderness Extremity Exam: normal inspection, normal range of motion, No swelling, No tenderness Mental Status: alert, oriented x 3, 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 Exam: normal hearing, normal speech, PERRL, tongue midline Coordination/Gait: normal finger to nose, normal gait, normal cerebellar function Motor/Sensory: no motor deficit, no sensory deficit, no pronator drift, negative Babinski's sign Skin Exam: normal color, warm, dry SpO2 Interpretation: normal O2 Delivery: Room Air - Course Nursing assessment & vital signs reviewed: Yes EKG Interpreted by Me: RATE (94), Sinus Rhythm, NORMAL AXIS, NORMAL INTERVALS, NORMAL QRS, NORMAL ST-T Ordered Tests: Medication Summary Discontinued Medications Generic Name Dose Route Start Last Admin Trade Name Freq PRN Reason Stop Dose Admin Sodium Chloride 1,000 mls @ 999 mls/hr 08/25/22 10:56 08/25/22 12:28 Sodium Chloride 0.9% 1000 Ml IV 08/25/22 11:56 Infused .Q1H1M STA Infusion Sodium Chloride Confirm 08/25/22 11:22 Sodium Chloride 0.9% 1000 Ml Administered 08/25/22 11:23 Dose 1,000 mls @ ud .ROUTE .K-MED ONE Ondansetron HCl 4 mg 08/25/22 10:57 08/25/22 11:25 Ondansetron Hcl 4 Mg/2 Ml Vial IV 08/25/22 10:58 4 mg STAT ONE Administration Ondansetron HCl Confirm 08/25/22 11:21 Ondansetron Hcl 4 Mg/2 Ml Vial Administered 08/25/22 11:22 Dose 4 mg .ROUTE .K-[facility] ONE Lab/Rad Data: Laboratory Result Diagrams 08/25/22 11:11 08/25/22 11:11 Laboratory Results 08/25/22 08/25/22 08/25/22 Range/Units 12:33 11:11 11:11 WBC 12.4 H (4.0-10.5) x10^3/uL RBC 3.64 L (4.1-5.4) x10^6/uL Hgb 10.5 L (12.0-16.0) g/dL Hct 33.1 L (35-47) % MCV 90.9 (78-100) fL MCH 28.8 (26-32) pg MCHC 31.7 L (32-36) g/dL RDW 13.0 (11.5-14.0) % Plt Count 299 (150-450) x10^3/uL MPV 9.9 (7.5-11.0) fL Gran % 72.1 H (36.0-66.0) % Immature Gran % (Auto) 1.4 H (0.00-0.4) % Nucleat RBC Rel Count 0.0 (0.00-0.1) % Eos # (Auto) 0.14 (0-0.5) x10^3/uL Immature Gran # (Auto) 0.17 H (0.00-0.03) x10^3u/L Absolute Lymphs (auto) 2.26 (1.0-4.6) x10^3/uL Absolute Monos (auto) 0.86 (0.0-1.3) x10^3/uL Absolute Nucleated RBC 0.00 (0.00-0.01) x10^3u/L Lymphocytes % 18.2 L (24.0-44.0) % Monocytes % 6.9 (0.0-12.0) % Eosinophils % 1.1 (0.00-5.0) % Basophils % 0.3 (0.0-0.4) % Absolute Granulocytes 8.95 H (1.4-6.9) x10^3/uL Basophils # 0.04 (0-0.4) x10^3/uL Sodium 137 (137-145) mmol/L Potassium 3.8 (3.5-5.1) mmol/L Chloride 106 (98-107) mmol/L Carbon Dioxide 21 L (22-30) mmol/L Anion Gap 13.8 (5-15) MEQ/L BUN 6 L (7-17) mg/dL Creatinine 0.43 L (0.52-1.04) mg/dL Estimated GFR > 60.0 ML/MIN Glucose 89 (74-106) mg/dL Calcium 8.8 (8.4-10.2) mg/dL Total Bilirubin 0.40 (0.2-1.3) mg/dL AST 23 (14-36) U/L ALT 15 (0-35) U/L Alkaline Phosphatase 103 (38-126) U/L Serum Total Protein 7.2 (6.3-8.2) g/dL Albumin 3.5 (3.5-5.0) g/dL Urine Color Yellow (Yellow) Urine Appearance Clear (Clear) Urine pH 7.5 (4.6-8.0) Ur Specific [place] 1.010 (1.005-1.030) Urine Protein Trace A (Negative) Urine Glucose (UA) Negative (Negative) mg/dL Urine Ketones Negative (Negative) Urine Blood Negative (Negative) Urine Nitrite Negative (Negative) Urine Bilirubin Negative (Negative) Urine Urobilinogen 0.2 (0.2) mg/dL Ur Leukocyte Esterase Negative (Negative) U Hyaline Cast (Auto) NONE SEEN (0-2) /LPF Urine Microscopic RBC 0-2 (0-5) /HPF Urine Microscopic WBC 3-5 (0-5) /HPF Ur Epithelial Cells Rare (None Seen) /HPF Urine Bacteria None Seen (None Seen) /HPF Urine Culture Reflexed NO (NO) - Progress Progress: improved Progress Note: CBC showed Hb of 10.5, patient reports recently being prescribed Iron, but not taking yet. CMP and UA wnl. EKG wnl. Patient feeling much better after NS bolus. If sxs continue recommend outpatient halter monitor. FHR 140 by doppler. Counseled pt/family regarding: lab results, diagnosis, need for follow-up Medical Desision Making - Diagnostic Testing Diagnostic test were ordered, analyzed, and reviewed by me: Yes Radiological Interpretation: Interpreted by me - Risk of complications Low Risk: Low risk of morbidity from additional dx testing or treatment - Departure Departure Disposition: Home Clinical Impression: Anemia affecting , Syncope due to orthostatic hypotension Condition: Good Critical Care Time: No Referrals: TONE GAMEZ DO [Primary Care Provider] - Follow up/PCP as directed Instructions: Syncope (Fainting) (DC)
[2022-08-25] MEDS ORDERED: Sodium Chloride 0.9% 1000 ML 1,000 ML IV STA (10:56)
[2022-08-25] MEDS ORDERED: Zofran 4 MG/2 ML VIAL IV ONE (10:57)
[2022-08-25] MEDS ORDERED: Zofran 4 MG/2 ML VIAL ONE (11:21)
[2022-08-25] MEDS ORDERED: Sodium Chloride 0.9% 1000 ML 1,000 ML ONE (11:22)
[2022-08-25 11:28] LABS: ALBUMIN 3.5 g/dL (3.5-5.0); ALKALINE PHOSPHATASE 103 U/L (38-126); ANION GAP 13.8 MEQ/L (5-15); Absolute Neutrophil Ct (ANC) 8.95 x10^3/uL (1.4-6.9); BASOPHIL % 0.3 % (0.0-0.4); BLOOD UREA NITROGEN 6 mg/dL (7-17); Basophil (Absolute #) 0.04 x10^3/uL (0-0.4); CHLORIDE 106 mmol/L (98-107); Calcium 8.8 mg/dL (8.4-10.2); Carbon Dioxide 21 mmol/L (22-30); Creatinine 1 0.43 mg/dL (0.52-1.04); EST GLOMERULAR FILTRATION RATE > 60.0 ML/MIN; Eosinophil % 1.1 % (0.00-5.0); Eosinophil (Absolute #) 0.14 x10^3/uL (0-0.5); Glucose 89 mg/dL (74-106); Hematocrit 33.1 % (35-47); Hemoglobin 10.5 g/dL (12.0-16.0); IMMATURE GRAN # 0.17 x10^3u/L (0.00-0.03); IMMATURE GRAN % 1.4 % (0.00-0.4); Lymphocyte (Absolute #) 2.26 x10^3/uL (1.0-4.6); Lymphocytes % 18.2 % (24.0-44.0); Mean Cell Volume 90.9 fL (78-100); Mean Corpuscular Hemoglobin 28.8 pg (26-32); Mean Corpuscular Hgb Concent. 31.7 g/dL (32-36); Mean Platelet Volume 9.9 fL (7.5-11.0); Monocyte (Absolute #) 0.86 x10^3/uL (0.0-1.3); Monocytes % 6.9 % (0.0-12.0); Neutrophil % 72.1 % (36.0-66.0); Platelet Count 299 x10^3/uL (150-450); Potassium 3.8 mmol/L (3.5-5.1); Red Blood Count 3.64 x10^6/uL (4.1-5.4); SGOT/AST 23 U/L (14-36); SGPT/ALT 15 U/L (0-35); SODIUM 137 mmol/L (137-145); Total Protein 7.2 g/dL (6.3-8.2); White Blood Count 12.4 x10^3/uL (4.0-10.5)
[2022-08-25 11:48] VITALS: O2SAT 97
[2022-08-25 12:34] VITALS: BP 108/60; PULSE 88
[2022-08-25 12:45] LABS: Appearance Clear (Clear); Bacteria None Seen /HPF (None Seen); Bilirubin Negative (Negative); Blood Negative (Negative); Epithelial Cells Rare /HPF (None Seen); Glucose, Urine Negative (Negative); Hyaline Casts NONE SEEN /LPF (0-2); Ketones Negative (Negative); Leukocyte Esterase Negative (Negative); Nitrite Negative (Negative); Ph 7.5 (4.6-8.0); Protein,Urine Dip Trace (Negative); RBC 0-2 /HPF (0-5); Urobilinogen 0.2 mg/dL (0.2)
[2022-08-25 12:48] LABS: ADD URINE CULTURE? NO (NO)
== END 2022-08-25 13:37 | disposition home or self-care (01) ==
LOC: ED 10:45
DX: O99.013 Anemia complicating pregnancy, third trimester (principal); D64.9 Anemia, unspecified; Z3A.28 28 weeks gestation of pregnancy; I95.1 Orthostatic hypotension; Z86.16 Personal history of COVID-19; Z72.0 Tobacco use
CPT/HCPCS: 36000; 36415; 80053; 81001; 85025; 93005; 93041; 96360; 96374; 99284; J2405

== ENCOUNTER 2022-10-03 10:39 | Observation (INO) | payer MEDICAID ==
[2022-10-03 11:49] LABS: Appearance Clear (Clear); Bacteria Few /HPF (None Seen); Bilirubin Negative (Negative); Blood Negative (Negative); Epithelial Cells Few /HPF (None Seen); Glucose, Urine Negative (Negative); Hyaline Casts NONE SEEN /LPF (0-2); Ketones Negative (Negative); Leukocyte Esterase Small (Negative); Nitrite Negative (Negative); Ph 6.5 (4.6-8.0); Protein,Urine Dip Negative (Negative); RBC 0-2 /HPF (0-5); Specific Gravity 1.015 (1.005-1.030); Urobilinogen 0.2 mg/dL (0.2)
[2022-10-03 11:59] LABS: Amphetamine,Urine NEGATIVE (NEGATIVE); Barbiturate,Urine NEGATIVE (NEGATIVE); Benzodiazepine,Urine NEGATIVE (NEGATIVE); Cocaine,Urine NEGATIVE (NEGATIVE); Methadone,Urine NEGATIVE (NEGATIVE); Opiate,Urine NEGATIVE (NEGATIVE); PCP,Urine NEGATIVE (NEGATIVE); THC,Urine NEGATIVE (NEGATIVE)
[2022-10-03 12:03] LABS: ADD URINE CULTURE? NO (NO)
[2022-10-03 12:10] VITALS: BP 118/73; PULSE 105; O2SAT 97
== END 2022-10-03 12:15 | disposition home or self-care (01) ==
LOC: MED SURG 10:39
PROVIDERS: ADMIT Obstetrics & Gynecology; ATTEND Obstetrics & Gynecology
DX: Z34.03 Encounter for supervision of normal first pregnancy, third trimester (principal); Z3A.34 34 weeks gestation of pregnancy; Z59.41 Food insecurity; Z59.82 Transportation insecurity
CPT/HCPCS: 80307; 81001; G0378; G0379

== ENCOUNTER 2022-10-23 21:40 | Observation (INO) | payer MEDICAID ==
[2022-10-23 23:30] VITALS: BP 129/68; RESP 18; O2SAT 97
[2022-10-24] MEDS ORDERED: TYLENOL EXTRA STRENGTH 500 MG PO ONE (00:12)
[2022-10-24] MEDS ORDERED: Nubain 10 MG/ML IM ONE (00:15)
[2022-10-24] MEDS ORDERED: TYLENOL EXTRA STRENGTH 500 MG ONE (00:26)
== END 2022-10-24 05:56 | disposition home or self-care (01) ==
LOC: UNDOADMOB 21:40 → OB 21:40 → UNDODISOB 10-24 05:56
PROVIDERS: ADMIT Obstetrics & Gynecology; ATTEND Obstetrics & Gynecology
DX: Z34.03 Encounter for supervision of normal first pregnancy, third trimester (principal); Z3A.36 36 weeks gestation of pregnancy
CPT/HCPCS: 59025; 99213; G0378; G0379; A9270-GY

== ENCOUNTER 2022-10-27 12:07 | Observation (INO) | payer MEDICAID ==
[2022-10-27 12:48] VITALS: BP 130/76; PULSE 84; RESP 20; TEMP 98.4; O2SAT 97
== END 2022-10-27 13:45 | disposition home or self-care (01) ==
LOC: OB 12:07
PROVIDERS: ADMIT Obstetrics & Gynecology; ATTEND Obstetrics & Gynecology
DX: Z34.03 Encounter for supervision of normal first pregnancy, third trimester (principal); Z3A.37 37 weeks gestation of pregnancy
CPT/HCPCS: 82947; 83986; 84112; G0378; G0379

== ENCOUNTER 2022-11-03 06:56 | Inpatient (IN) | payer MEDICAID ==
[2022-11-03] MEDS ORDERED: XYLOCAINE 1% HCL 20 ML MDV IJ PRN (07:21)
[2022-11-03] MEDS ORDERED: Zofran 4 MG/2 ML VIAL IV PRN (07:21)
[2022-11-03] MEDS ORDERED: PITOCIN 30 UNITS/ LR 500 ML 30 UNITS/500 ML PLAST..BAG IV SCH (07:30)
[2022-11-03 07:58] VITALS: RESP 18
[2022-11-03 07:59] LABS: Absolute Neutrophil Ct (ANC) 9.35 x10^3/uL (1.4-6.9); BASOPHIL % 0.3 % (0.0-0.4); Basophil (Absolute #) 0.04 x10^3/uL (0-0.4); Eosinophil % 1.6 % (0.00-5.0); Eosinophil (Absolute #) 0.22 x10^3/uL (0-0.5); Hematocrit 35.3 % (35-47); Hemoglobin 11.4 g/dL (12.0-16.0); IMMATURE GRAN # 0.15 x10^3u/L (0.00-0.03); IMMATURE GRAN % 1.1 % (0.00-0.4); Lymphocyte (Absolute #) 3.11 x10^3/uL (1.0-4.6); Lymphocytes % 22.7 % (24.0-44.0); Mean Cell Volume 87.2 fL (78-100); Mean Corpuscular Hemoglobin 28.1 pg (26-32); Mean Corpuscular Hgb Concent. 32.3 g/dL (32-36); Monocyte (Absolute #) 0.84 x10^3/uL (0.0-1.3); Monocytes % 6.1 % (0.0-12.0); Neutrophil % 68.2 % (36.0-66.0); Platelet Count 257 x10^3/uL (150-450); Red Blood Count 4.05 x10^6/uL (4.1-5.4); Red Cell Distribution Width 14.5 % (11.5-14.0); White Blood Count 13.7 x10^3/uL (4.0-10.5)
[2022-11-03 08:17] LABS: Amphetamine,Urine NEGATIVE (NEGATIVE); Barbiturate,Urine NEGATIVE (NEGATIVE); Benzodiazepine,Urine NEGATIVE (NEGATIVE); Cocaine,Urine NEGATIVE (NEGATIVE); Methadone,Urine NEGATIVE (NEGATIVE); Opiate,Urine NEGATIVE (NEGATIVE); PCP,Urine NEGATIVE (NEGATIVE); THC,Urine NEGATIVE (NEGATIVE)
[2022-11-03 08:50] LABS: ABO TYPING B
[2022-11-03 08:59] LABS: Antibody Screen NEGATIVE (NEGATIVE)
[2022-11-03] MEDS ORDERED: SOD CITRATE-CITRIC ACID SOLN PO SCH (09:00)
[2022-11-03] MEDS ORDERED: CEFAZOLIN 2 GM-D5W BAG** 2 GM/50 ML ML IV SCH (09:00)
[2022-11-03] MEDS ORDERED: Pepcid 20 MG VIAL IV SCH (09:00)
[2022-11-03] MEDS ORDERED: Reglan 10 MG/2 ML IV SCH (09:00)
[2022-11-03] MEDS: Lactated Ringers 1,000 ML IV SCH ×2 (09:00→19:35)
[2022-11-03 09:06] LABS: INR 0.85 (0.8-3.0); PROTIME 9.4 SECONDS (9.4-12.5); PTT 25.9 SECONDS (25.1-36.5)
[2022-11-03 09:10] LABS: Appearance Turbid (Clear); Bilirubin Negative (Negative); Blood Large (Negative); Epithelial Cells Many /HPF (None Seen); Glucose, Urine Negative (Negative); Ketones Negative (Negative); Leukocyte Esterase Trace (Negative); Nitrite Negative (Negative); Ph 6.5 (4.6-8.0); Protein,Urine Dip >=1000 (Negative); RBC >100 /HPF (0-5); Specific Gravity >=1.030 (1.005-1.030); WBC 51-100 /HPF (0-5)
[2022-11-03 09:18] LABS: RH TYPING POSITIVE
[2022-11-03 09:22] LABS: ADD URINE CULTURE? YES (NO); Bacteria Moderate /HPF (None Seen)
[2022-11-03] MEDS ORDERED: Pitocin 10 UNITS/ML ONE (09:41)
[2022-11-03] MEDS ORDERED: Astramorph-Pf 5 MG/10 ML ONE (09:45)
[2022-11-03] MEDS ORDERED: PHENYLEPHRINE HCL ONE (09:45)
[2022-11-03] MEDS ORDERED: OFIRMEV 100 ML IV ONE (09:46)
[2022-11-03] MEDS ORDERED: Sensorcaine 0.25% 10 ML ONE (09:46)
[2022-11-03] MEDS ORDERED: Lactated Ringers 1,000 ML IV ONE ×3 (09:51→19:27)
[2022-11-03] MEDS ORDERED: EXPAREL 133 MG/10 ML VIAL IJ ONE (10:06)
[2022-11-03] MEDS ORDERED: Ephedrine Sulfate 50 MG/ML ONE (10:26)
[2022-11-03] MEDS ORDERED: ROBINUL ONE (10:42)
[2022-11-03] MEDS ORDERED: Zofran 4 MG/2 ML VIAL ONE (11:04)
[2022-11-03] MEDS ORDERED: LANSINOH 40 GM TOP PRN (13:35)
[2022-11-03] MEDS ORDERED: HOLD NARCOTIC ANALGESICS AND SEDATIVES X24 HR MC PRN (13:38)
[2022-11-03] MEDS ORDERED: DEMEROL 50 MG IV PRN (13:38)
[2022-11-03] MEDS ORDERED: MORPHINE SULFATE 2 MG INJ IV PRN (13:38)
[2022-11-03] MEDS ORDERED: Sodium Chloride 0.9% 10 ML FLUSH Syringe IJ PRN (13:38)
[2022-11-03] MEDS ORDERED: CLARITIN 10 MG PO PRN (13:38)
[2022-11-03] MEDS ORDERED: PERCOCET TABLET 5/325MG PO PRN (13:38)
[2022-11-03] MEDS ORDERED: Narcan 0.4 MG/ML IV PRN (13:38)
[2022-11-03] MEDS ORDERED: BENADRYL 50 MG/ML IV PRN (13:38)
[2022-11-03] MEDS ORDERED: Nubain 10 MG/ML IV PRN (13:38)
[2022-11-03] MEDS: Dextrose 5%-Lr IV Solution 1000 ML 1,000 ML IV SCH ×2 (15:24→23:52)
[2022-11-03] MEDS ORDERED: Adacel Vial IM ONE (16:00)
[2022-11-03] MEDS ORDERED: Lactated Ringers 500 ML IV ONE (19:01)
[2022-11-03] MEDS: MOTRIN 400 MG PO PRN (20:29)
[2022-11-03] MEDS: Docusate Sodium 100 MG PO SCH (23:52)
[2022-11-04] MEDS: MOTRIN 400 MG PO PRN ×3 (02:21→18:39)
[2022-11-04 05:56] LABS: Absolute Neutrophil Ct (ANC) 9.44 x10^3/uL (1.4-6.9); BASOPHIL % 0.4 % (0.0-0.4); Basophil (Absolute #) 0.05 x10^3/uL (0-0.4); Eosinophil % 1.1 % (0.00-5.0); Eosinophil (Absolute #) 0.15 x10^3/uL (0-0.5); Hematocrit 31.2 % (35-47); Hemoglobin 9.8 g/dL (12.0-16.0); IMMATURE GRAN # 0.11 x10^3u/L (0.00-0.03); IMMATURE GRAN % 0.8 % (0.00-0.4); Lymphocyte (Absolute #) 2.87 x10^3/uL (1.0-4.6); Lymphocytes % 21.1 % (24.0-44.0); Mean Cell Volume 90.4 fL (78-100); Mean Corpuscular Hemoglobin 28.4 pg (26-32); Mean Corpuscular Hgb Concent. 31.4 g/dL (32-36); Mean Platelet Volume 12.4 fL (7.5-11.0); Monocyte (Absolute #) 0.98 x10^3/uL (0.0-1.3); Monocytes % 7.2 % (0.0-12.0); Neutrophil % 69.4 % (36.0-66.0); Platelet Count 216 x10^3/uL (150-450); Red Blood Count 3.45 x10^6/uL (4.1-5.4); White Blood Count 13.6 x10^3/uL (4.0-10.5)
[2022-11-04 06:29] LABS: ALBUMIN 2.9 g/dL (3.5-5.0); ALKALINE PHOSPHATASE 150 U/L (38-126); ANION GAP 10.5 MEQ/L (5-15); BLOOD UREA NITROGEN 15 mg/dL (7-17); CHLORIDE 105 mmol/L (98-107); Calcium 8.2 mg/dL (8.4-10.2); Carbon Dioxide 22 mmol/L (22-30); Creatinine 1 0.82 mg/dL (0.52-1.04); EST GLOMERULAR FILTRATION RATE > 60.0 ML/MIN; Glucose 93 mg/dL (74-106); Potassium 4.1 mmol/L (3.5-5.1); SGOT/AST 34 U/L (14-36); SGPT/ALT 15 U/L (0-35); SODIUM 133 mmol/L (137-145); Total Protein 5.8 g/dL (6.3-8.2)
[2022-11-04] MEDS: Dextrose 5%-Lr IV Solution 1000 ML 1,000 ML IV SCH (07:45)
[2022-11-04] MEDS: Mylicon 80MG PO PRN ×2 (09:33→22:21)
[2022-11-04] MEDS: Docusate Sodium 100 MG PO SCH ×2 (09:33→22:21)
[2022-11-04] MEDS: FERREX 150 PO SCH (09:33)
[2022-11-04] MEDS: NORCO 5/325 MG PO PRN ×2 (14:44→22:21)
[2022-11-05] MEDS: MOTRIN 400 MG PO PRN ×3 (01:10→15:40)
[2022-11-05] MEDS: NORCO 5/325 MG PO PRN (02:52)
[2022-11-05 05:14] LABS: Absolute Neutrophil Ct (ANC) 7.19 x10^3/uL (1.4-6.9); BASOPHIL % 0.5 % (0.0-0.4); Basophil (Absolute #) 0.05 x10^3/uL (0-0.4); Eosinophil % 1.7 % (0.00-5.0); Eosinophil (Absolute #) 0.18 x10^3/uL (0-0.5); Hematocrit 27.9 % (35-47); Hemoglobin 8.5 g/dL (12.0-16.0); IMMATURE GRAN # 0.14 x10^3u/L (0.00-0.03); IMMATURE GRAN % 1.3 % (0.00-0.4); Lymphocyte (Absolute #) 2.48 x10^3/uL (1.0-4.6); Lymphocytes % 23.1 % (24.0-44.0); Mean Cell Volume 91.5 fL (78-100); Mean Corpuscular Hemoglobin 27.9 pg (26-32); Mean Corpuscular Hgb Concent. 30.5 g/dL (32-36); Mean Platelet Volume 11.9 fL (7.5-11.0); Monocytes % 6.5 % (0.0-12.0); Neutrophil % 66.9 % (36.0-66.0); Platelet Count 246 x10^3/uL (150-450); Red Blood Count 3.05 x10^6/uL (4.1-5.4); Red Cell Distribution Width 15.4 % (11.5-14.0); White Blood Count 10.7 x10^3/uL (4.0-10.5)
--- NOTE | 2022-11-05 08:57 | PCM.DS ---
Discharge Summary Date of Admission: 11/03/22 06:56 Admitting Physician: ANDRE HECTOR Consults: Consults on Case 11/03/22 08:53 Notify Physician OF ADMISSION 11/03/22 13:38 Notify Anesthesia Provider PRN 11/03/22 18:53 Navigation ONCE Primary Care Provider: ANDRE HECTOR Allergies Allergies No Known Drug Allergies Allergy (Verified 11/03/22 09:21) Hospital Summary - Hospital Course Hospital Course: patient had primary , arrived with SROM and ultrasound showed macrosomia. has done well with routine care. - Vitals & Intake/Output Vital Signs: Vital Signs Temperature 98.1 F 11/05/22 04:17 Pulse Rate 94 H 11/05/22 04:17 Respiratory Rate 18 11/05/22 04:17 Blood Pressure 116/66 11/05/22 04:17 O2 Sat by Pulse Oximetry 100 11/05/22 04:17 Intake & Output: Intake & Output 11/02/22 11/03/22 11/04/22 11/05/22 11:59 11:59 11:59 11:59 Intake Total 3825 1475 Output Total 1114 1200 Balance 2711 275 Weight 108.862 kg - Lab Result Diagrams: 11/05/22 04:18 11/04/22 05:25 Lab Results-Last 24 Hrs: Lab Results-Last 24 Hours 11/03/22 11/05/22 Range/Units 08:00 04:18 WBC 10.7 H (4.0-10.5) x10^3/uL RBC 3.05 L (4.1-5.4) x10^6/uL Hgb 8.5 L (12.0-16.0) g/dL Hct 27.9 L (35-47) % MCV 91.5 (78-100) fL MCH 27.9 (26-32) pg MCHC 30.5 L (32-36) g/dL RDW 15.4 H (11.5-14.0) % Plt Count 246 (150-450) x10^3/uL MPV 11.9 H (7.5-11.0) fL Gran % 66.9 H (36.0-66.0) % Immature Gran % (Auto) 1.3 H (0.00-0.4) % Nucleat RBC Rel Count 0.0 (0.00-0.1) % Eos # (Auto) 0.18 (0-0.5) x10^3/uL Immature Gran # (Auto) 0.14 H (0.00-0.03) x10^3u/L Absolute Lymphs (auto) 2.48 (1.0-4.6) x10^3/uL Absolute Monos (auto) 0.70 (0.0-1.3) x10^3/uL Absolute Nucleated RBC 0.00 (0.00-0.01) x10^3u/L Lymphocytes % 23.1 L (24.0-44.0) % Monocytes % 6.5 (0.0-12.0) % Eosinophils % 1.7 (0.00-5.0) % Basophils % 0.5 (0.0-0.4) % Absolute Granulocytes 7.19 H (1.4-6.9) x10^3/uL Basophils # 0.05 (0-0.4) x10^3/uL Rubella IgG Antibody 2.50 (Immune >0.99) index Micro Results-Entire Visit: Microbiology 11/03/22 07:43 Urine Culture - Final Clean Catch Midstream MIXED SHARONA; 3 OR MORE TYPES. NO PREDOMINANT ORGANISM. NO FURTHER WORKUP. PLEASE RESUBMIT IF CLINICALLY INDICATED. 11/03/22 11:24 Urine Culture - Preliminary Catherized NO GROWTH TO DATE - Procedures and Test Procedures and Tests throughout Hospitalization: Therapy Orders & Screens 11/03/22 11:22 Standby STAT Comment: Discharge Exam General Appearance: no apparent distress, obese Neurologic Exam: alert, oriented x 3 Respiratory Exam: normal breath sounds, lungs clear, No respiratory distress Cardiovascular Exam: regular rate/rhythm, normal heart sounds Gastrointestinal/Abdomen Exam: soft, other (incision clean, dry, intact) Extremity Exam: normal inspection, normal range of motion Final Diagnosis/Problem List - Final Discharge Diagnosis/Problem (1) delivery delivered Current Visit: Yes Status: Acute Assessment & Plan: doing great post-op with routine care. Code(s): O82 - ENCOUNTER FOR DELIVERY WITHOUT INDICATION - Discharge Disposition: Home, Self-Care Condition: Stable Prescriptions: New Hydrocodone/Acetaminophen [Hydrocodone-Acetamin 5-325 mg] 1 tab PO Q6HPRN PRN #28 tablet MDD 4 PRN Reason: Pain Continue Ferrous Sulfate 325 mg [Feosol 325 mg] 325 mg PO DAILY Discontinued No122/Iron/Folic Acid [ Multi Tablet] 1 tab PO DAILY Metformin HCl 500 mg [Glucophage 500 MG] 500 mg PO BIDWM Follow up with: ANDRE HECTOR MD [Primary Care Provider] - 1 Week
[2022-11-05] MEDS: Docusate Sodium 100 MG PO SCH (09:24)
[2022-11-05] MEDS: FERREX 150 PO SCH (09:24)
--- NOTE | 2022-11-05 09:40 | OP ---
SURGERY DATE/TIME: 11/03/2022 1004 PREOPERATIVE DIAGNOSES: 1) macrosomia. 2) Term intrauterine with spontaneous rupture of membranes. POSTOPERATIVE DIAGNOSES: 1) macrosomia. 2) Term intrauterine with spontaneous rupture of membranes. PROCEDURE: Primary low transverse section. SURGEON: Rg Doherty M.D. ANESTHESIA: Spinal by Dorian Adams CRNA. QUANTITATIVE BLOOD LOSS: 576 ml. IV FLUIDS: 1100 ml. URINE OUTPUT: 100 ml of concentrated dark urine. DESCRIPTION OF PROCEDURE: The patient is a 22 -year-old 1, para 0 at 38 and 3/7 weeks estimated gestational age who presented to the OB department early this morning with spontaneous rupture of membranes and uterine contractions. She was confirmed to have rupture of membranes with AmniSure testing and nursing cervical check and she was 1 cm dilated. The patient had a growth scan yesterday that showed estimated weight of [address] Tan Young who was unavailable and out of town at the time of her presentation. Due to the estimated weight, the patient had been counseled on the possible need for primary section. After risks, benefits and alternatives were discussed, she elected to proceed with primary section. She was taken to the OR and spinal anesthesia was performed. She was prepped and draped in the usual sterile fashion. Adequate level of anesthesia was assessed. A low transverse skin incision was made by knife and carried down to the subcutaneous fat to the level of the fascia. The fascia was nicked on both sides of the midline and extended horizontal using curved Tinajero scissors. The superior free edge of the fascia was grasped with Barbra clamps and the underlying rectus muscles were dissected free. The same was repeated inferiorly. The peritoneal cavity was then opened bluntly and an Saran retractor was placed in the peritoneal cavity at that time providing good exposure. A bladder flap was then created and reflected over the uterine segment and then uterine incision was made by knife and carried down to the level of the amniotic membranes which were artificially ruptured. A viable male from the vertex presentation with a strong cry immediately upon delivery. Bulb suction was used for oropharynx and nares. The cord was clamped and cut and then he was handed off to the awaiting nursery team. Next, the placenta was manually extracted and the uterus was removed from the peritoneal cavity. The uterine cavity was sponge curetted clean with a lap sponge and then the uterine incision was closed with #1 chromic in a running locked fashion. Good closure and good hemostasis were achieved at this level with two layers of chromic suture. The patient had concentrated urine in the [place] which was clear following delivery and closure of the uterine incision. Posterior cul-de-sac was wiped free of blood and clot and the uterus was returned to the peritoneal cavity. Small area of bleeding in the left lower aspect of the incision was controlled with [id number] suture. The Saran retractor was removed. The lateral gutters were wiped free of blood and clot. Again, the uterine incision was inspected and noted to have good closure and good hemostasis. The fascia was then closed with 0 Vicryl in running fashion with good closure and good hemostasis achieved at this level. The subcutaneous fat was irrigated with warm, sterile saline. Any areas of bleeding in the subcutaneous fat were cauterized with electrocautery. 2-0 Vicryl was used in interrupted fashion to close the subcutaneous fat potential space. Next, the skin layer was closed with 4-0 undyed Vicryl in a running subcuticular fashion. Steri-Strips and occlusive dressing were placed over the incision. The patient was transferred to the recovery room in good condition.
[2022-11-05 10:06] VITALS: BP 135/68; PULSE 106; TEMP 97.9; O2SAT 99
== END 2022-11-05 18:40 | disposition home or self-care (01) | DRG 788 ==
LOC: OBSVTOIN 06:56 → OB 06:56
PROVIDERS: ADMIT Family Medicine; ATTEND Family Medicine
PROC: 10D00Z1 Extraction of Products of Conception, Low, Open Approach (ICD-10-PCS; principal; 2022-11-03)
DX: O66.2 Obstructed labor due to unusually large fetus (principal); O24.429 Gestational diabetes mellitus in childbirth, unspecified control; Z3A.38 38 weeks gestation of pregnancy; Z37.0 Single live birth; Z20.828 Contact with and (suspected) exposure to other viral communicable diseases
CPT/HCPCS: 36415; 64488; 76937; 80053; 80307; 81001; 82947; 84112; 85025; 85610; 85730; 86762; 86850; 86900; 86901; 87086; 90715; 94799; 96372; J0690; J1200; J2274; J2370; J2405; J2590; L0625; A9270-GY

== ENCOUNTER 2023-10-19 10:53 | Emergency (ER) | payer OTHER ==
[2023-10-19 11:09] VITALS: TEMP 97.6; O2SAT 98
--- NOTE | 2023-10-19 11:15 | ERPHSYRPT ---
- History of Present Illness Time Seen by Provider: 10/19/23 11:10 Source: patient, family Exam Limitations: no limitations Patient Subjective Stated Complaint: PT states "I fell down two the three steps and hurt my right foot, ankle, and knee." Triage Nursing Assessment: Pt presented alert and oriented X 3, skin pwd. Pt has swelling noted to top of right foot, right ankle and right knee pain. Physician History: pt slipped on steps striking right foot, ankle and lower leg - no abrasions or lac - tet UTD, and knee but has no knee pain or tenderness with full ROM tender lower leg , ankle and foot. N/V intact. tendon fxn intact. didnot strike head or have LOC. Full ROM entire spine without tenderness . Normal neuro exam and mental status. No Hx blood thinners or bleeding problems. Chest and abd nontender without distension or peritoneal signs. Full ROM all otger estremities without pain. Discussed risks/benefits of imaging with pt and family and they wish to proceed with right leg, ankle and foot and defer right knee since no symptoms or findings in knee today and understand the limitations of this testing and that occult fx may still be present and therefore f/u is important and have the capacity to make this choice. Method of Injury: direct blow, fell Occurred: yesterday Quality: constant, stabbing, throbbing Severity of Pain-Max: moderate Severity of Pain-Current: moderate Lower Extremities Pain: leg: right, foot: right, ankle: right Modifying Factors: Improves With: cold therapy, immobilization, movement Associated Symptoms: none Allergies/Adverse Reactions: No Known Drug Allergies Allergy (Verified 11/03/22 09:21) Home Medications: Penicillin V Potassium 500 mg PO BID 10/19/23 [History] Hx Tetanus, Diphtheria Vaccination/Date Given: Yes Hx Influenza Vaccination/Date Given: No Hx Pneumococcal Vaccination/Date Given: No Immunizations Up to Date: No Travel Risk - International Travel Have you traveled outside of the country in past 3 weeks: No - Emerging Infectious Disease Are you exhibiting symptoms associated with any current EIDs: No - Review of Systems Constitutional: No Fever, No Chills Eyes: No Symptoms Ears, Nose, & Throat: No Symptoms Respiratory: No Cough, No Dyspnea Cardiac: No Chest Pain, No Edema, No Syncope Abdominal/Gastrointestinal: No Abdominal Pain, No Nausea, No Vomiting, No Diarrhea Genitourinary Symptoms: No Dysuria Musculoskeletal: Fall, Injury, Joint Pain, Joint Swelling, No Back Pain, No Neck Pain Skin: No Rash Neurological: No Dizziness, No Focal Weakness, No Sensory Changes Psychological: No Symptoms Endocrine: No Symptoms Hematologic/Lymphatic: No Symptoms Immunological/Allergic: No Symptoms All Other Systems: Reviewed and Negative - Past Medical History Pertinent Past Medical History: Yes Neurological History: No Pertinent History ENT History: No Pertinent History Cardiac History: No Pertinent History Respiratory History: No Pertinent History Endocrine Medical History: No Pertinent History Musculoskeletal History: No Pertinent History GI Medical History: No Pertinent History History: No Pertinent History Psycho-Social History: Anxiety, Depression Female Reproductive Disorders: No Pertinent History Other Medical History: COVID IN MARCH 2021, Polycystic Ovary Disease - Past Surgical History Past Surgical History: No Neuro Surgical History: No Pertinent History Cardiac: No Pertinent History Respiratory: No Pertinent History Gastrointestinal: No Pertinent History Genitourinary: No Pertinent History Musculoskeletal: No Pertinent History Female Surgical History: No Pertinent History - Female History Hx Last Menstrual Period: 09/16/2026 Hx Now: No - Social History Smoking Status: Current every day smoker How long have you smoked: years Exposure to second hand smoke: No Drug Use: none Patient Lives Alone: Yes - Social Determinants of Health Will the patient participate in the screening: Yes Do you worry about a steady place to live?: No Do you have any problems with any of the following?: No known problems In the past 12 months,have you had to go without utilities?: No Transportation Issues: No Has anyone in your support network made you feel unsafe?: No Have you or anyone in your house had to go without enough: No - Nursing Vital Signs Nursing Vital Signs: Initial Vital Signs Temperature 97.6 F 10/19/23 11:04 Pulse Rate 94 H 10/19/23 11:04 Respiratory Rate 18 10/19/23 11:04 Blood Pressure 128/79 10/19/23 11:04 O2 Sat by Pulse Oximetry 98 10/19/23 11:04 Pain Scale Pain Intensity 4 - Physical Exam General Appearance: no apparent distress, alert Eyes, Ears, Nose, Throat Exam: moist mucous membranes Neck Exam: non-tender, supple, full range of motion Cardiovascular/Respiratory Exam: chest non-tender, normal breath sounds, regular rate/rhythm, no respiratory distress Gastrointestinal/Abdominal Exam: non-tender, soft, No guarding, No tenderness Back Exam: normal inspection, No vertebral tenderness Hips Exam: bilateral: non-tender, normal inspection, normal range of motion, no evidence of injury Legs Exam: right leg: soft tissue tenderness, left leg: non-tender, normal inspection, normal range of motion, no evidence of injury Knees Exam: bilateral knee: non-tender, normal inspection, normal range of motion, no evidence of injury Ankle Exam: right ankle: bone tenderness, pain, soft tissue tenderness, swelling, left ankle: non-tender, normal inspection, normal range of motion, no evidence of injury Foot Exam: right foot: bone tenderness, pain, soft tissue tenderness, swelling, left foot: non-tender, normal inspection, normal range of motion, no evidence of injury DTR - Lower Extremities Exam: knee (R): 2+, knee (L): 2+, ankle (R): 2+, ankle (L): 2+ Neuro/Tendon Exam: normal sensation, normal motor functions, normal tendon functions Mental Status Exam: alert, oriented x 3, cooperative Skin Exam: normal color, warm, dry SpO2 Interpretation: normal SpO2: 98 O2 Delivery: Room Air Procedures - Splinting Time of Procedure: 13:07 Location of Splint: Right Type of Splint: Walking Boot/Shoe Splint Applied By: ED Nurse Pre-Proc Neuro Vasc Exam: normal Post-Proc Neuro Vasc Exam: neurovascular intact, good alignment, unchanged from pre-exam - Course Nursing assessment & vital signs reviewed: Yes - Radiology Exams Right Foot X-ray Interpretation: Reviewed by me, Other (suspected occult fx dorsal navicular - will splint ) Ankle X-ray Interpretation: Reviewed by me, Other (suspected lateral talus nondisp fx) Right Lower Leg X-ray Interpretation: Reviewed by me, Other (no obvious fx. ) Ordered Tests: Active Orders 24 hr Category Date Time Status ANKLE (3 VIEWS) Stat Exams 10/19/23 11:21 Taken FOOT (MINIMUM 3 VIEWS) Stat Exams 10/19/23 11:20 Taken LOWER LEG Stat Exams 10/19/23 11:20 Taken Medication Summary Discontinued Medications Generic Name Dose Route Start Last Admin Trade Name Freq PRN Reason Stop Dose Admin Hydrocodone Bitart/Acetaminophen 2 tab 10/19/23 13:06 Hydrocodone/Apap 5/325 1 Tab Tablet PO 10/19/23 13:07 SENT HOME W/ PATIENT ONE - Progress Progress: improved, re-examined Progress Note: 10/19/23 13:00 discussed findings with pt and family and that I suspect an occult fx or ligament injury so f/u is important with PMD/ortho this week and use crutches/slpint meantime and after discussion of risks/benefits they wish to proceed. 10/19/23 13:01 Counseled pt/family regarding: diagnosis, need for follow-up, rad results Medical Desision Making - Independent Historian Additional History obtained from: Relative/friend - Discussion of managment Reviewed:: Test results, Need for additional workup Agreed on:: Treatment plan, need for follow-up - Diagnostic Testing Diagnostic test were ordered, analyzed, and reviewed by me: Yes Radiological Interpretation: Interpreted by me, Reviewed by me - Risk of complications The pt has a mod risk of morbidity or mortality based on: Need for prescription drug management - Departure Departure Disposition: Home Clinical Impression: Injury of right ankle and foot Condition: Good Critical Care Time: No Referrals: DOCTOR,NO FAMILY [Primary Care Provider] - Follow up/PCP as directed Instructions: Fracture (DC), Contusion (DC) Additional Instructions: We suspect a hairline fracture in the foot and ankle and ligament injury and so are treating as a fracture with splint and crutches until you can see your Dr. in follow-up this week. Return meantime if numbness, swelling, increased pain or other concerns. Use over the counter alleve and tylenol as per package instructions.
[2023-10-19 13:00] VITALS: BP 124/74; PULSE 86; RESP 18
[2023-10-19] MEDS ORDERED: NORCO 5/325 MG ONE (13:08)
[2023-10-19] MEDS: NORCO 5/325 MG PO ONE (13:10)
--- NOTE | 2023-10-19 19:52 | XRAY ---
Indication: Pain following fall. Comparison: None 3 view right ankle obtained. No bony, articular, or soft tissue abnormalities.
--- NOTE | 2023-10-19 19:54 | XRAY ---
Indication: Tenderness dorsum foot following fall. Comparison: None 3 nonweightbearing views right foot obtained. No bony, articular, or soft tissue abnormalities.
--- NOTE | 2023-10-19 19:55 | XRAY ---
Indication: Pain following fall. Comparison: None 2 view right lower leg demonstrates normal bones, articulation, and soft tissues.
== END 2023-10-19 13:27 | disposition home or self-care (01) ==
LOC: ED 10:53
DX: S99.911A Unspecified injury of right ankle, initial encounter (principal); S99.921A Unspecified injury of right foot, initial encounter; W10.9XXA Fall (on) (from) unspecified stairs and steps, initial encounter; Z72.0 Tobacco use
CPT/HCPCS: 73590; 73610; 73630; 99283; L4386; A9270-GY

== ENCOUNTER 2024-05-19 14:43 | Emergency (ER) | payer OTHER ==
[2024-05-19 14:56] VITALS: TEMP 96.3
[2024-05-19] MEDS: Sodium Chloride 0.9% 1000 ML 1,000 ML IV SCH (15:05)
[2024-05-19] MEDS ORDERED: Sodium Chloride 0.9% 1000 ML 1,000 ML ONE (15:05)
[2024-05-19 15:18] LABS: Absolute Neutrophil Ct (ANC) 5.43 x10^3/uL (1.56-6.13); BASOPHIL % 0.7 % (0.1-1.2); Basophil (Absolute #) 0.07 x10^3/uL (0.01-0.08); Eosinophil % 0.5 % (0.7-5.8); Eosinophil (Absolute #) 0.05 x10^3/uL (0.04-0.36); Hemoglobin 10.7 g/dL (11.2-15.7); IMMATURE GRAN # 0.03 x10^3u/L (0.001-0.031); IMMATURE GRAN % 0.3 % (0.001-0.429); Lymphocyte (Absolute #) 3.81 x10^3/uL (1.18-3.74); Lymphocytes % 38.9 % (19.3-51.7); Mean Cell Volume 85.4 fL (79.4-94.8); Mean Corpuscular Hemoglobin 26.9 pg (25.6-32.2); Mean Corpuscular Hgb Concent. 31.5 g/dL (32.2-35.5); Mean Platelet Volume 10.1 fL (9.4-12.3); Monocytes % 4.1 % (4.7-12.5); Neutrophil % 55.5 % (34.0-71.1); Platelet Count 322 x10^3/uL (182-369); Red Blood Count 3.98 x10^6/uL (3.93-5.22); Red Cell Distribution Width 14.6 % (11.7-14.4); White Blood Count 9.8 x10^3/uL (3.98-10.04)
--- NOTE | 2024-05-19 15:28 | ERPHSYRPT ---
- History of Present Illness Time Seen by Provider: 05/19/24 14:55 Source: patient Exam Limitations: no limitations Patient Subjective Stated Complaint: EMS stated "she called some friends and told them she thought she was going to pass out so they came to get her and she did pass out at their house. She said she has been drinking rum and she did smoke some maryjuana." Triage Nursing Assessment: Pt presented alert and oriented X 3, skin pwd. Pt sleepy. Pt has 20 g iv in pt left ac with NS running wide open. Pt was placed on 2 LPM O2 via NC due to hypoxia on room air. PT has strong smell of ETOH Physician History: 23-year-old female presents to our ED via EMS for evaluation of alcohol intoxication. Patient states that she had been drinking vodka. Patient was feeling sad last night for no clear reason. She denies homicidal suicidal ideation. Patient's children are now with father. 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 Patient awoke this morning feeling lightheaded. Patient called her friend's who then called 911. Patient states she did pass out after her friends arrived. Patient appears intoxicated. Patient's breath smells like alcohol. No signs of trauma. Patient denies neck pain. No trauma. No BHT or LOC no chest pain or shortness of breath. No nausea vomiting or diaphoresis. Patient otherwise feels well. She voices no other complaints or concerns at this time. Portions of this note were created with voice recognition technology. There may be grammatical, spelling, punctuation or sound alike errors Timing/Duration: today Severity: moderate Modifying Factors: Improves With: nothing Associated Symptoms: denies symptoms Allergies/Adverse Reactions: No Known Drug Allergies Allergy (Verified 11/03/22 09:21) Home Medications: No Reportable Medications [No Reported Medications] 05/19/24 [History] Hx Tetanus, Diphtheria Vaccination/Date Given: Yes Hx Influenza Vaccination/Date Given: No Hx Pneumococcal Vaccination/Date Given: No Immunizations Up to Date: No Travel Risk - International Travel Have you traveled outside of the country in past 3 weeks: No - Emerging Infectious Disease Are you exhibiting symptoms associated with any current EIDs: No - Review of Systems Constitutional: No Symptoms, No Fever, No Chills Eyes: No Symptoms Ears, Nose, & Throat: No Symptoms Respiratory: No Symptoms, No Cough, No Dyspnea Cardiac: No Symptoms, No Chest Pain, No Edema, No Syncope Abdominal/Gastrointestinal: No Symptoms, No Abdominal Pain, No Nausea, No Vomiting, No Diarrhea Genitourinary Symptoms: No Symptoms, No Dysuria Musculoskeletal: No Symptoms, No Back Pain, No Neck Pain Skin: No Symptoms, No Rash Neurological: No Symptoms, No Dizziness, No Focal Weakness, No Sensory Changes Psychological: No Symptoms Endocrine: No Symptoms Hematologic/Lymphatic: No Symptoms Immunological/Allergic: No Symptoms All Other Systems: Reviewed and Negative - Past Medical History Pertinent Past Medical History: Yes Neurological History: No Pertinent History ENT History: No Pertinent History Cardiac History: No Pertinent History Respiratory History: No Pertinent History Endocrine Medical History: No Pertinent History Musculoskeletal History: No Pertinent History GI Medical History: No Pertinent History History: No Pertinent History Psycho-Social History: Anxiety, Depression Female Reproductive Disorders: No Pertinent History Other Medical History: COVID IN MARCH 2021, Polycystic Ovary Disease - Past Surgical History Past Surgical History: No Neuro Surgical History: No Pertinent History Cardiac: No Pertinent History Respiratory: No Pertinent History Gastrointestinal: No Pertinent History Genitourinary: No Pertinent History Musculoskeletal: No Pertinent History Female Surgical History: No Pertinent History - Female History Hx Last Menstrual Period: 04/08/2024 Hx Now: (unknown) - Social History Smoking Status: Current every day smoker How long have you smoked: years Exposure to second hand smoke: No Drug Use: marijuana - Social Determinants of Health Will the patient participate in the screening: Yes Do you worry about a steady place to live?: No Do you have any problems with any of the following?: No known problems In the past 12 months,have you had to go without utilities?: No Transportation Issues: No Has anyone in your support network made you feel unsafe?: No Have you or anyone in your house had to go w/o enough food: No - Nursing Vital Signs Nursing Vital Signs: Initial Vital Signs Temperature 96.3 F 05/19/24 14:44 Pulse Rate 110 H 05/19/24 14:44 Respiratory Rate 18 05/19/24 14:44 Blood Pressure 119/74 05/19/24 14:44 O2 Sat by Pulse Oximetry 99 05/19/24 14:44 Pain Scale Pain Intensity 0 - Physical Exam General Appearance: no apparent distress, alert Eye Exam: PERRL/EOMI, eyes nml inspection Ears, Nose, Throat Exam: normal ENT inspection, TMs normal, pharynx normal, moist mucous membranes Neck Exam: normal inspection, non-tender, supple, full range of motion Respiratory Exam: normal breath sounds, lungs clear, airway intact, No respiratory distress Cardiovascular Exam: regular rate/rhythm, normal heart sounds, normal peripheral pulses Gastrointestinal/Abdomen Exam: soft, normal bowel sounds, No tenderness, No mass Back Exam: normal inspection, normal range of motion, No CVA tenderness, No vertebral tenderness Extremity Exam: normal inspection, normal range of motion, pelvis stable Neurologic Exam: alert, oriented x 3, cooperative, normal mood/affect, nml cerebellar function, nml station & gait, sensation nml, No motor deficits Skin Exam: normal color, warm, dry, No rash Lymphatic Exam: No adenopathy SpO2 Interpretation: normal SpO2: 99 O2 Delivery: Room Air - Course Nursing assessment & vital signs reviewed: Yes EKG Interpreted by Me: RATE (81), Sinus Rhythm, NORMAL AXIS, NORMAL INTERVALS, NORMAL QRS Ordered Tests: Active Orders 24 hr Category Date Time Status IV Insertion STAT Care 05/19/24 15:00 Completed ACETAMINOPHEN Stat Lab 05/19/24 15:15 Completed Alcohol [ETHYL ALCOHOL] Stat Lab 05/19/24 15:15 Completed CBC W DIFF Stat Lab 05/19/24 15:15 Completed CMP Stat Lab 05/19/24 15:15 Completed CULTURE,URINE Stat Lab 05/19/24 15:28 Received HCG QUALITATIVE, URINE Stat Lab 05/19/24 15:28 Completed SALICYLATE Stat Lab 05/19/24 15:15 Completed UA W/RFX UR CULTURE Stat Lab 05/19/24 15:28 Completed Urine Triage Profile Stat Lab 05/19/24 15:28 Completed Medication Summary Discontinued Medications Generic Name Dose Route Start Last Admin Trade Name Freq PRN Reason Stop Dose Admin Sodium Chloride 1,000 mls @ 100 mls/hr 05/19/24 15:00 05/19/24 15:05 Sodium Chloride 0.9% 1000 Ml IV 06/18/24 14:59 100 mls/hr .Q10H CECE Administration Sodium Chloride Confirm 05/19/24 15:05 Sodium Chloride 0.9% 1000 Ml Administered 05/19/24 15:06 Dose 1,000 mls @ ud .ROUTE .STK-MED ONE Lab/Rad Data: Laboratory Result Diagrams 05/19/24 15:15 05/19/24 15:15 Laboratory Results 05/19/24 05/19/24 05/19/24 Range/Units 15:28 15:28 15:28 WBC (3.98-10.04) x10^3/uL RBC (3.93-5.22) x10^6/uL Hgb (11.2-15.7) g/dL Hct (34.1-44.9) % MCV (79.4-94.8) fL MCH (25.6-32.2) pg MCHC (32.2-35.5) g/dL RDW (11.7-14.4) % Plt Count (182-369) x10^3/uL MPV (9.4-12.3) fL Gran % (34.0-71.1) % Immature Gran % (Auto) (0.001-0.429) % Nucleat RBC Rel Count (0.00-0.2) % Eos # (Auto) (0.04-0.36) x10^3/uL Immature Gran # (Auto) (0.001-0.031) x10^3u/L Absolute Lymphs (auto) (1.18-3.74) x10^3/uL Absolute Monos (auto) (0.24-0.86) x10^3/uL Absolute Nucleated RBC (0.00-0.012) x10^3u/L Lymphocytes % (19.3-51.7) % Monocytes % (4.7-12.5) % Eosinophils % (0.7-5.8) % Basophils % (0.1-1.2) % Absolute Granulocytes (1.56-6.13) x10^3/uL Basophils # (0.01-0.08) x10^3/uL Sodium (135-145) mmol/L Potassium (3.5-5.1) mmol/L Chloride (98-107) mmol/L Carbon Dioxide (22-30) mmol/L Anion Gap (5-15) MEQ/L BUN (7-17) mg/dL Creatinine (0.52-1.04) mg/dL Estimated GFR ML/MIN Glucose (74-106) mg/dL Calcium (8.4-10.2) mg/dL Total Bilirubin (0.2-1.3) mg/dL AST (14-36) U/L ALT (0-35) U/L Alkaline Phosphatase (38-126) U/L Serum Total Protein (6.3-8.2) g/dL Albumin (3.5-5.0) g/dL Urine Color Yellow (Yellow) Urine Appearance Clear (Clear) Urine pH 5.5 (4.6-8.0) Ur Specific [place] <=1.005 (1.005-1.030) Urine Protein Negative (Negative) Urine Glucose (UA) Negative (Negative) mg/dL Urine Ketones Negative (Negative) Urine Blood Negative (Negative) Urine Nitrite Negative (Negative) Urine Bilirubin Negative (Negative) Urine Urobilinogen 0.2 (0.2) mg/dL Ur Leukocyte Esterase Negative (Negative) U Hyaline Cast (Auto) NONE SEEN (0-2) /LPF Urine Microscopic RBC 0-2 (0-5) /HPF Urine Microscopic WBC 0-2 (0-5) /HPF Ur Epithelial Cells None Seen (None Seen) /HPF Urine Bacteria None Seen (None Seen) /HPF Urine Culture Reflexed YES (NO) Urine HCG, Qual NEGATIVE (NEGATIVE) Salicylates (2-20) mg/dL Urine Opiates Level NEGATIVE (NEGATIVE) Ur Methadone NEGATIVE (NEGATIVE) Acetaminophen (10-30) ug/ml Urine Barbiturates NEGATIVE (NEGATIVE) Ur Phencyclidine (PCP) NEGATIVE (NEGATIVE) Urine Amphetamine NEGATIVE (NEGATIVE) U Benzodiazepine Level NEGATIVE (NEGATIVE) Urine Cocaine NEGATIVE (NEGATIVE) Urine Marijuana (THC) POSITIVE A (NEGATIVE) Ethyl Alcohol (0-10) mg/dL 05/19/24 05/19/24 05/19/24 Range/Units 15:15 15:15 15:15 WBC 9.8 (3.98-10.04) x10^3/uL RBC 3.98 (3.93-5.22) x10^6/uL Hgb 10.7 L (11.2-15.7) g/dL Hct 34.0 L (34.1-44.9) % MCV 85.4 (79.4-94.8) fL MCH 26.9 (25.6-32.2) pg MCHC 31.5 L (32.2-35.5) g/dL RDW 14.6 H (11.7-14.4) % Plt Count 322 (182-369) x10^3/uL MPV 10.1 (9.4-12.3) fL Gran % 55.5 (34.0-71.1) % Immature Gran % (Auto) 0.3 (0.001-0.429) % Nucleat RBC Rel Count 0.0 (0.00-0.2) % Eos # (Auto) 0.05 (0.04-0.36) x10^3/uL Immature Gran # (Auto) 0.03 (0.001-0.031) x10^3u/L Absolute Lymphs (auto) 3.81 H (1.18-3.74) x10^3/uL Absolute Monos (auto) 0.40 (0.24-0.86) x10^3/uL Absolute Nucleated RBC 0.00 (0.00-0.012) x10^3u/L Lymphocytes % 38.9 (19.3-51.7) % Monocytes % 4.1 L (4.7-12.5) % Eosinophils % 0.5 L (0.7-5.8) % Basophils % 0.7 (0.1-1.2) % Absolute Granulocytes 5.43 (1.56-6.13) x10^3/uL Basophils # 0.07 (0.01-0.08) x10^3/uL Sodium 143 (135-145) mmol/L Potassium 3.4 L (3.5-5.1) mmol/L Chloride 111 H (98-107) mmol/L Carbon Dioxide 15 L* (22-30) mmol/L Anion Gap 20.2 H (5-15) MEQ/L BUN 5 L (7-17) mg/dL Creatinine 0.66 (0.52-1.04) mg/dL Estimated GFR 127.1 ML/MIN Glucose 152 H (74-106) mg/dL Calcium 8.7 (8.4-10.2) mg/dL Total Bilirubin 0.40 (0.2-1.3) mg/dL AST 20 (14-36) U/L ALT 16 (0-35) U/L Alkaline Phosphatase 74 (38-126) U/L Serum Total Protein 7.4 (6.3-8.2) g/dL Albumin 4.4 (3.5-5.0) g/dL Urine Color (Yellow) Urine Appearance (Clear) Urine pH (4.6-8.0) Ur Specific [place] (1.005-1.030) Urine Protein (Negative) Urine Glucose (UA) (Negative) mg/dL Urine Ketones (Negative) Urine Blood (Negative) Urine Nitrite (Negative) Urine Bilirubin (Negative) Urine Urobilinogen (0.2) mg/dL Ur Leukocyte Esterase (Negative) U Hyaline Cast (Auto) (0-2) /LPF Urine Microscopic RBC (0-5) /HPF Urine Microscopic WBC (0-5) /HPF Ur Epithelial Cells (None Seen) /HPF Urine Bacteria (None Seen) /HPF Urine Culture Reflexed (NO) Urine HCG, Qual (NEGATIVE) Salicylates < 1.0 L (2-20) mg/dL Urine Opiates Level (NEGATIVE) Ur Methadone (NEGATIVE) Acetaminophen < 10 L (10-30) ug/ml Urine Barbiturates (NEGATIVE) Ur Phencyclidine (PCP) (NEGATIVE) Urine Amphetamine (NEGATIVE) U Benzodiazepine Level (NEGATIVE) Urine Cocaine (NEGATIVE) Urine Marijuana (THC) (NEGATIVE) Ethyl Alcohol 131 H (0-10) mg/dL - Progress Progress: improved Progress Note: IV fluids administered. Patient reassessed. She is neurologically normal. No focal or lateralizing symptomology. No headache no numbness tingling or weakness. Patient ambulated to the restroom with a normal gait. Patient asymptomatic and is now requesting discharge. Discharge according to patient's request. No indication for further workup at this time. Will discharge home. Patient voices no other complaints or concerns at this time. Portions of this note were created with voice recognition technology. There may be grammatical, spelling, punctuation or sound alike errors Complexity of problem addressed is moderate acute complicated no critical care time. Complexity of data reviewed and analyzed moderate. Test ordered test r eviewed results analyzed and correlated clinically with history and physical exam. Risk of complication and or risk of morbidity/mortality of patient management is low. Vital stable. Time spent to discharge patient approximately 15 minutes. Plan of care established for shared decision making. No social determinants of health present to impede follow-up. Portions of this note were created with voice recognition technology. There may be grammatical, spelling, punctuation or sound alike errors 05/19/24 18:22 Counseled pt/family regarding: lab results, diagnosis, need for follow-up - Departure Departure Disposition: Home Clinical Impression: Alcohol use, Marijuana use Condition: Stable Critical Care Time: No Referrals: DOCTOR,NO FAMILY [Primary Care Provider] - Follow up/PCP as directed Instructions: Cannabis use disorder, Alcohol intoxication - ED discharge instructions Additional Instructions: Discharge/Care Plan STACIA ORTIZ was seen on 05/19/24 in the Emergency Room. The patient was counseled regarding Diagnosis,Lab results, Imaging studies, need for follow up and when to return to the Emergency Room. Prescriptions given: Discharge Note I have spoken with the patient and/or caregivers. I have explained the patient's condition, diagnosis and treatment plan based on the information available to me at this time. I have answered the patient's and/or caregiver's questions and addressed any concerns. The patient and/or caregivers have as good understanding of the patient's diagnosis, condition and treatment plan as can be expected at this point. The vital signs have been stable. The patient's condition is stable and appropriate for discharge from the emergency department. The patient will pursue further outpatient evaluation with the primary care physician or other designated or consulting physician as outlined in the discharge instructions. The patient and/or caregivers are agreeable to this plan of care and follow-up instructions have been explained in detail. The patient and/or caregivers have received these instruction. The patient/and or caregivers are aware that any significant change in condition or worsening of symptoms should prompt an immediate return to this or the closest emergency department or call 911.
[2024-05-19 15:32] LABS: ACETAMINOPHEN < 10 ug/ml (10-30); ALBUMIN 4.4 g/dL (3.5-5.0); ALKALINE PHOSPHATASE 74 U/L (38-126); ANION GAP 20.2 MEQ/L (5-15); BLOOD UREA NITROGEN 5 mg/dL (7-17); CHLORIDE 111 mmol/L (98-107); Calcium 8.7 mg/dL (8.4-10.2); Creatinine 1 0.66 mg/dL (0.52-1.04); EST GLOMERULAR FILTRATION RATE 127.1 ML/MIN; Glucose 152 mg/dL (74-106); Potassium 3.4 mmol/L (3.5-5.1); SALICYLATE < 1.0 mg/dL (2-20); SGOT/AST 20 U/L (14-36); SGPT/ALT 16 U/L (0-35); SODIUM 143 mmol/L (135-145); Total Protein 7.4 g/dL (6.3-8.2)
[2024-05-19 15:37] LABS: Carbon Dioxide 15 mmol/L (22-30)
[2024-05-19 16:08] LABS: HCG URINE TEST NEGATIVE (NEGATIVE)
[2024-05-19 16:13] LABS: Appearance Clear (Clear); Bacteria None Seen /HPF (None Seen); Bilirubin Negative (Negative); Blood Negative (Negative); Epithelial Cells None Seen /HPF (None Seen); Glucose, Urine Negative (Negative); Hyaline Casts NONE SEEN /LPF (0-2); Ketones Negative (Negative); Leukocyte Esterase Negative (Negative); Nitrite Negative (Negative); Ph 5.5 (4.6-8.0); Protein,Urine Dip Negative (Negative); RBC 0-2 /HPF (0-5); Specific Gravity <=1.005 (1.005-1.030); Urobilinogen 0.2 mg/dL (0.2); WBC 0-2 /HPF (0-5)
[2024-05-19 16:31] LABS: Amphetamine,Urine NEGATIVE (NEGATIVE); Barbiturate,Urine NEGATIVE (NEGATIVE); Benzodiazepine,Urine NEGATIVE (NEGATIVE); Cocaine,Urine NEGATIVE (NEGATIVE); Methadone,Urine NEGATIVE (NEGATIVE); Opiate,Urine NEGATIVE (NEGATIVE); PCP,Urine NEGATIVE (NEGATIVE); THC,Urine POSITIVE (NEGATIVE)
[2024-05-19 17:09] VITALS: PULSE 70
[2024-05-19 18:04] VITALS: BP 101/66; RESP 18
[2024-05-19 18:24] VITALS: O2SAT 99
== END 2024-05-19 18:17 | disposition home or self-care (01) ==
LOC: ED 14:43
DX: F10.90 Alcohol use, unspecified, uncomplicated (principal); F12.90 Cannabis use, unspecified, uncomplicated; Y90.6 Blood alcohol level of 120-199 mg/100 ml; Z72.0 Tobacco use
CPT/HCPCS: 36415; 80053; 80143; 80179; 80307; 81001; 81025; 82077; 85025; 87086; 99283